=== PATIENT | female | born 1945 ===

== ENCOUNTER 2016-06-20 13:45 | Inpatient (IN) | payer OTHER ==
[2016-06-20 14:16] VITALS: BMI 36.1
[2016-06-20] MEDS ORDERED: Ipratropium 0.02% Inhal Soln (0.5 mg/2.5 ml) UD IH STA ×2 (14:37)
[2016-06-20] MEDS ORDERED: Levalbuterol 1.25 MG/3 ML Inhal Soln UD IH STA ×2 (14:37)
--- NOTE | 2016-06-20 14:53 | ED PDOC ---
Arrival/HPI - General Chief Complaint: Shortness Of Breath Time Seen by Provider: 06/20/16 14:05 Historian: Patient - History of Present Illness Narrative History of Present Illness (Text): 06/20/16 14:54 A 71 year old female, whose past medical history includes asthma, chronic obstructive pulmonary disease, diabetes and hypertension, presents to the emergency department complaining of a cough, shortness of breath and chest tightness for the past three days. Patient notes a temperature of 100.4 last night. Patient reports a mild nausea but denies vomiting, abdominal pain or any other complaints at this time. Time/Duration: Other (3 days) Symptom Onset: Sudden Symptom Course: Unchanged Activities at Onset: Rest Modifying Factors (Text): none Context: Home Associated Symptoms (Text): nausea Past Medical History - Provider Review Nursing Documentation Reviewed: Yes - Infectious Disease Hx of Infectious Diseases: None - Tetanus Immunization Tetanus Immunization: Unknown - Reproductive Menopause: Yes - Cardiac Hx Hypertension: Yes - Pulmonary Hx Respiratory Disorders: Yes Hx Asthma: Yes - Neurological Hx Paralysis: No - HEENT Hx Cataracts: Yes (RIGHT EYE) - Renal Hx Kidney Stones: Yes - Endocrine/Metabolic Hx Diabetes Mellitus Type 2: Yes - Hematological/Oncological Hx Blood Transfusions: No - Integumentary Hx Dermatological Disorder: Yes Other/Comment: ROSACEA - Musculoskeletal/Rheumatological Hx Musculoskeletal Disorders: Yes - Gastrointestinal Hx Gastrointestinal Disorders: Yes Hx Gastroesophageal Reflux: Yes - Genitourinary/Gynecological Hx Genitourinary Disorders: No - Psychiatric Hx Substance Use: No - Surgical History Hx Hysterectomy: Yes - Anesthesia Hx Anesthesia Reactions: No Hx Malignant Hyperthermia: No - Suicidal Assessment Feels Threatened In Home Enviroment: No Family/Social History - Physician Review Nursing Documentation Reviewed: Yes Family/Social History: No Known Family HX Smoking Status: Never Smoked Hx Alcohol Use: No Hx Substance Use: No Hx Substance Use Treatment: No Allergies/Home Meds Allergies/Adverse Reactions: Allergies No Known Allergies Allergy (Verified 09/22/15 00:01) Home Medications: Home Meds Medication Instructions Recorded Confirmed Fluticasone Nasal [Flonase] 1 spray THEO DAILY 03/27/15 10/09/15 Mometasone/Formoterol [Dulera 200 2 puff INH BID 03/27/15 10/09/15 Mcg/5 Mcg Inhaler] Montelukast [Singulair] 10 mg PO DAILY 03/27/15 10/09/15 Naproxen 375 mg PO DAILY 03/27/15 10/09/15 Pantoprazole [Protonix EC Tab] 40 mg PO DAILY 03/27/15 10/09/15 Albuterol HFA [Ventolin HFA 90 2 puff IH [id number] 09/25/15 10/09/15 mcg/actuation (8 g)] Fenofibrate Nanocrystallized 145 mg PO DAILY 09/30/15 10/09/15 [Fenofibrate] Metformin HCl [Glucophage] 500 mg PO BID 10/09/15 10/09/15 Review of Systems - Physician Review All systems were reviewed & negative as marked: Yes - Review of Systems Constitutional: Fevers Respiratory: SOB, Cough Cardiovascular: LARSEN, Other (chest tightness) Gastrointestinal: Nausea. absent: Abdominal Pain, Vomiting Genitourinary Female: absent: Dysuria Physical Exam Vital Signs Reviewed: Yes Vital Signs Temp Pulse Resp BP Pulse Ox 06/20/16 14:54 99.8 F H 06/20/16 13:46 99.2 F 110 H 20 151/90 H 93 L Temperature: Afebrile Blood Pressure: Hypertensive Pulse: Tachycardic Respiratory Rate: Normal Appearance: Positive for: Well-Appearing, Non-Toxic, Comfortable Pain Distress: None Mental Status: Positive for: Alert and Oriented X 3 - Systems Exam Head: Present: Atraumatic, Normocephalic Pupils: Present: PERRL Conjunctiva: Present: Normal Mouth: Present: Moist Mucous Membranes Pharnyx: Present: Normal. No: ERYTHEMA, EXUDATE Neck: Present: Normal Range of Motion Respiratory/Chest: Present: Wheezes (diffuse bilateral), Other (significantly diminished breath sounds) Cardiovascular: Present: Tachycardic Abdomen: Present: Normal Bowel Sounds. No: Tenderness, Distention, Peritoneal Signs Back: Present: Normal Inspection Upper Extremity: Present: Normal Inspection. No: Cyanosis, Edema Lower Extremity: Present: Normal Inspection. No: Edema Neurological: Present: GCS=15, CN II-XII Intact, Speech Normal Skin: Present: Warm, Dry, Normal Color. No: Rashes Psychiatric: Present: Alert, Oriented x 3, Normal Insight, Normal Concentration Medical Decision Making ED Course and Treatment: 06/20/16 14:50 Impression: A 71 year old female with cough, shortness of breath and chest tightness. Differential Diagnosis included but are not limited to: COPD exacerbation vs. pneumonia vs ACS Plan: -- EKG -- chest xray -- labs -- Urinalysis -- Reassess and disposition Prior Visits: Notes and results from previous visits were reviewed. Patient last reported to emergency department on 09/22/15 for evaluation of dizziness, chest pain and nausea. Patient admitted to Telemetry observation for chest pain under 's service. Progress Notes: chest xray: Creator : Charlie Bills MD 06/20/2016 15:33 IMPRESSION: No focal airspace opacity. 06/20/16 16:15 Patient with noted history; labs are unremarkable as is CXR, but patient with significantly diminished air entry and sob - will need additional treatment in the hospital. Discussed with Dr. Lacy, who said to place here on the hospitalist service. Case discussed with Dr. Simpson. - Lab Interpretations Lab Results: 06/20/16 14:40 06/20/16 14:40 Lab Results 06/20/16 14:40: Sodium 143, Chloride 103, Potassium 3.9, Carbon Dioxide 30, Anion Gap 14, BUN 12, Creatinine 0.8, Est GFR ( Amer) > 60, Est GFR (Non- Af Amer) > 60, Random Glucose 138 H, Calcium 9.3, Phosphorus 3.5, Magnesium 1.5 L, Total Bilirubin 0.7, AST 29, ALT 38, Alkaline Phosphatase 60, Lactate Dehydrogenase 470, Total Creatine Kinase 151, Troponin I < 0.01, NT-Pro-B Natriuret Pep 29.3, Total Protein 7.5, Albumin 4.0, Globulin 3.6, Albumin/ Globulin Ratio 1.1, Lipase 107, Plasma Cortisol PM Pending 06/20/16 14:40: pO2 48, VBG pH 7.33, VBG pCO2 60.0, VBG HCO3 31.6 H, VBG Total CO2 33.4 H, VBG O2 Sat (Calc) 87.1 H, VBG Base Excess 4.0 H, VBG Potassium 3.9, Sodium 141.0, Chloride 110.0 H, Glucose 141 H, Lactate 1.6, FiO2 21.0, Venous Blood Potassium 3.9 06/20/16 14:40: PT 10.7, INR 0.99, APTT 24.7 06/20/16 14:40: WBC 5.0 D, RBC 4.19, Hgb 12.7, Hct 37.3, MCV 89.0, MCH 30.3, MCHC 34.0, RDW 13.4, Plt Count 203, MPV 11.2 H, Gran % 50.4, Lymph % (Auto) 38.6 H, [place] % (Auto) 7.8 H, Eos % (Auto) 2.6, Baso % (Auto) 0.6, Gran # 2.52, Lymph # 1.9, [place] # 0.4, Eos # 0.1, Baso # 0.03, ESR 12 I have reviewed the lab results: Yes - RAD Interpretation Radiology Orders: 06/20/16 14:35 CHEST PORTABLE [RAD] Stat - EKG Interpretation EKG Interpretation (Text): 06/20/16 16:17 sinus tachycardia @ 112; no ST/T changes; normal intervals; normal axis. Interpreted by ED Physician: Yes Type: 12 lead EKG - Medication Orders Current Medication Orders: Magnesium Sulfate 2 gm/ Sodium (Chloride) 104 mls @ 102 mls/hr IV ONCE ONE Stop: 06/20/16 16:32 Last Admin: 06/20/16 15:44 Dose: 102 mls/hr Discontinued Medications Ipratropium [place] (Atrovent) 0.5 mg IH STAT STA Stop: 06/20/16 14:38 Last Admin: 06/20/16 15:39 Dose: 0.5 mg Ipratropium [place] (Atrovent) 0.5 mg IH STAT STA Stop: 06/20/16 14:38 Last Admin: 06/20/16 15:00 Dose: 0.5 mg Levalbuterol HCl (Xopenex) 1.25 mg IH STAT STA Stop: 06/20/16 14:38 Last Admin: 06/20/16 15:15 Dose: 1.25 mg Levalbuterol HCl (Xopenex) 1.25 mg IH STAT STA Stop: 06/20/16 14:38 Last Admin: 06/20/16 15:00 Dose: 1.25 mg Methylprednisolone (Solu-Medrol) 125 mg IVP STAT STA Stop: 06/20/16 14:38 Last Admin: 06/20/16 15:00 Dose: 125 mg - Scribe Statement The provider has reviewed the documentation as recorded by the Heriberto Redman Provider Scribe Attestation: All medical record entries made by the Pabloibhilario were at my direction and personally dictated by me. I have reviewed the chart and agree that the record accurately reflects my personal performance of the history, physical exam, medical decision making, and the department course for this patient. I have also personally directed, reviewed, and agree with the discharge instructions and disposition. Disposition/Present on Arrival - Present on Arrival Any Indicators Present on Arrival: No History of DVT/PE: No History of Uncontrolled Diabetes: No Urinary Catheter: No History of Decub. Ulcer: No History Surgical Site Infection Following: None - Disposition Have Diagnosis and Disposition been Completed?: Yes Diagnosis: COPD exacerbation Disposition: HOSPITALIZED Disposition Time: 16:10 Patient Plan: Observation Condition: FAIR
[2016-06-20 15:01] LABS: ADD MANUAL DIFF? NO
[2016-06-20 15:04] LABS: BASO # 0.03 K/mm3 (0.0-2.0); BASO % 0.6 % (0.0-3.0); EOS # 0.1 (0.0-0.7); EOS % 2.6 % (1.5-5.0); GRAN # 2.52 (1.4-6.5); GRAN % 50.4 % (50.0-68.0); HEMATOCRIT 37.3 % (36.0-48.0); LYMPH # 1.9 (1.2-3.4); LYMPH % 38.6 % (22.0-35.0); MEAN CORPUSCULAR HEMOGLOBIN 30.3 pg (25.0-35.0); MEAN PLATELET VOLUME 11.2 fl (7.0-11.0); MONO # 0.4 (0.1-0.6); MONO % 7.8 % (1.0-6.0); PLATELET COUNT 203 10^3/uL (120.0-450.0); RED CELL DISTRIBUTION WIDTH 13.4 % (11.5-14.5)
[2016-06-20 15:05] LABS: VENOUS BLOOD PH 7.33 (7.32-7.43)
[2016-06-20 15:15] LABS: ALB/GLOB RATIO 1.1 (1.1-1.8); ALKALINE PHOSPHATASE 60 U/L (38-133); ALT/SGPT 38 U/L (7-56); AST/SGOT 29 U/L (15-39); BILIRUBIN,TOTAL 0.7 mg/dL (0.2-1.3); BLOOD UREA NITROGEN 12 mg/dL (7-21); CALCIUM 9.3 mg/dL (8.4-10.5); CARBON DIOXIDE 30 mmol/L (21-33); CHLORIDE 103 mmol/L (98-107); GFR AFRICAN-AMERICAN > 60; GLUCOSE,RANDOM 138 mg/dL (70-110); INR 0.99 (0.93-1.08); LIPASE 107 U/L (23-300); MAGNESIUM 1.5 mg/dL (1.7-2.2); PARTIAL THROMBOPLASTIN TIME 24.7 Seconds (23.7-30.8); PHOSPHOROUS 3.5 mg/dL (2.5-4.5); POTASSIUM 3.9 mmol/L (3.6-5.0); SODIUM 143 mmol/L (132-148); TOTAL PROTEIN 7.5 g/dL (5.8-8.3)
[2016-06-20 15:29] LABS: TROPONIN I < 0.01 ng/mL
--- NOTE | 2016-06-20 15:29 | RAD ---
HISTORY: Sepsis Patient COMPARISON: 07/09/2015 FINDINGS: LUNGS: No focal airspace opacity. PLEURA: No significant pleural effusion identified, no pneumothorax apparent. CARDIOVASCULAR: Normal. OSSEOUS STRUCTURES: The osseous structures demonstrate degenerative changes. VISUALIZED UPPER ABDOMEN: Upper abdomen is suboptimally evaluated. OTHER FINDINGS: None. IMPRESSION: No focal airspace opacity.
[2016-06-20] MEDS ORDERED: Magnesium Sulfate 2 GM in Sodium Chloride 0.9% 100 ML IV ONE (15:31)
[2016-06-20 16:11] LABS: ERYTHROCYTE SEDIMENTATION RATE 12 mm/hr (0.0-20.0)
[2016-06-20] MEDS ORDERED: Levalbuterol 1.25 MG/3 ML Inhal Soln UD IH PRN (17:16)
[2016-06-20 17:20] LABS: URINE BILIRUBIN NEGATIVE (NEGATIVE); URINE BLOOD TRACE-INTACT (NEGATIVE); URINE GLUCOSE (UA) NEGATIVE (NEGATIVE); URINE KETONE NEGATIVE (NEGATIVE); URINE LEUKOCYTE ESTERASE NEGATIVE Leu/uL (NEGATIVE); URINE PROTEIN NEGATIVE mg/dL (<30 mg/dL); URINE UROBILINOGEN 0.2 E.U./dL (<1 E.U./dL)
[2016-06-20 17:29] LABS: URINE APPEARANCE CLEAR (CLEAR); URINE COLOR YELLOW (YELLOW)
--- NOTE | 2016-06-20 17:29 | CP.PCM.HP ---
<Kathy Avila - Last Filed: 06/20/16 17:57> History of Present Illness - History of Present Illness History of Present Illness: 71 yo F w/PMHx of asthma, COPD, DM, HTN, presents with 3 day hx of cough with white small volume sputum, SOB, chest tightness, and home measured tempureture of 100.4. Said SOB is not related with exertion. reports nasal congetsion and watery eyes, and sick son-in-law in house. Chest tightness is with cough, and otherwise, pt denies vomiting, abdominal pain, urinary symptoms, and BM changes. PMHx: COPD, asthma, DM, HTN Psxhx: hysterectomy allergies: NKDA Medications: singulair 10, omeprazole 40, fenofibrate 135 qd, metformin 500 mg PO BID, ramipril 5 mg PO QD social: former smoker of 12 years duration of 2 cig /day. denies etoh, and ilicit drugs family: DM, no CA Present on Admission - Present on Admission Any Indicators Present on Admission: No Review of Systems - Review of Systems All systems: reviewed and no additional remarkable complaints except - Constitutional Constitutional: Chills, Fever - Cardiovascular Cardiovascular: absent: Chest Pain with Activity, Dyspnea - Respiratory Respiratory: Cough, Dyspnea - Gastrointestinal Gastrointestinal: absent: Abdominal Pain, Diarrhea Past Patient History - Infectious Disease Hx of Infectious Diseases: None - Tetanus Immunizations Tetanus Immunization: Unknown - Past Medical History & Family History Past Medical History?: Yes - Past Social History Smoking Status: Never Smoked - CARDIAC Hx Hypertension: Yes - PULMONARY Hx Respiratory Disorders: Yes Hx Asthma: Yes - NEUROLOGICAL Hx Paralysis: No - HEENT Hx Cataracts: Yes (RIGHT EYE) - RENAL Hx Kidney Stones: Yes - ENDOCRINE/METABOLIC Hx Diabetes Mellitus Type 2: Yes - HEMATOLOGICAL/ONCOLOGICAL Hx Blood Transfusions: No - INTEGUMENTARY Hx Dermatological Problems: Yes Other/Comment: ROSACEA - MUSCULOSKELETAL/RHEUMATOLOGICAL Hx Musculoskeletal Disorders: Yes - GASTROINTESTINAL Hx Gastrointestinal Disorders: Yes Hx Gastroesophageal Reflux: Yes - GENITOURINARY/GYNECOLOGICAL Hx Genitourinary Disorders: No - PSYCHIATRIC Hx Substance Use: No - SURGICAL HISTORY Hx Hysterectomy: Yes - ANESTHESIA Hx Anesthesia Reactions: No Hx Malignant Hyperthermia: No Meds Allergies/Adverse Reactions: Allergies Allergy/AdvReac Type Severity Reaction Status Date / Time No Known Allergies Allergy Verified 09/22/15 00:01 Physical Exam - Head Exam Head Exam: ATRAUMATIC, NORMOCEPHALIC - Eye Exam Eye Exam: EOMI, Normal appearance Pupil Exam: NORMAL ACCOMODATION, PERRL - ENT Exam ENT Exam: Mucous Membranes Moist, Normal Exam - Respiratory Exam Respiratory Exam: Wheezes, NORMAL BREATHING PATTERN - Cardiovascular Exam Cardiovascular Exam: Tachycardia, +S1, +S2 - GI/Abdominal Exam GI & Abdominal Exam: Soft. absent: Tenderness - Exam External exam: absent: Ecchymosis, Erythema - Extremities Exam Extremities exam: Positive for: normal capillary refill, pedal pulses present - Back Exam Back exam: absent: CVA tenderness (L), CVA tenderness (R) - Neurological Exam Neurological exam: Alert, Oriented x3 - Skin Skin Exam: Intact, Normal Color Results - Vital Signs Recent Vital Signs: Last Vital Signs Temp 98.7 F 06/20/16 16:53 Pulse 101 H 06/20/16 16:53 Resp 20 06/20/16 16:53 BP 150/90 06/20/16 16:53 Pulse Ox 94 L 06/20/16 16:53 - Labs Result Diagrams: 06/20/16 14:40 06/20/16 14:40 Labs: Laboratory Results - last 24 hr 06/20/16 06/20/16 06/20/16 14:40 14:40 14:40 WBC 5.0 D RBC 4.19 Hgb 12.7 Hct 37.3 MCV 89.0 MCH 30.3 MCHC 34.0 RDW 13.4 Plt Count 203 MPV 11.2 H Gran % 50.4 Lymph % (Auto) 38.6 H [place] % (Auto) 7.8 H Eos % (Auto) 2.6 Baso % (Auto) 0.6 Gran # 2.52 Lymph # 1.9 [place] # 0.4 Eos # 0.1 Baso # 0.03 ESR 12 PT 10.7 INR 0.99 APTT 24.7 pO2 48 VBG pH 7.33 VBG pCO2 60.0 VBG HCO3 31.6 H VBG Total CO2 33.4 H VBG O2 Sat (Calc) 87.1 H VBG Base Excess 4.0 H VBG Potassium 3.9 Sodium 141.0 Chloride 110.0 H Glucose 141 H Lactate 1.6 FiO2 21.0 Potassium Carbon Dioxide Anion Gap BUN Creatinine Est GFR ( Amer) Est GFR (Non-Af Amer) Random Glucose Calcium Phosphorus Magnesium Total Bilirubin AST ALT Alkaline Phosphatase Lactate Dehydrogenase Total Creatine Kinase Troponin I NT-Pro-B Natriuret Pep Total Protein Albumin Globulin Albumin/Globulin Ratio Lipase Venous Blood Potassium 3.9 06/20/16 14:40 WBC RBC Hgb Hct MCV MCH MCHC RDW Plt Count MPV Gran % Lymph % (Auto) [place] % (Auto) Eos % (Auto) Baso % (Auto) Gran # Lymph # [place] # Eos # Baso # ESR PT INR APTT pO2 VBG pH VBG pCO2 VBG HCO3 VBG Total CO2 VBG O2 Sat (Calc) VBG Base Excess VBG Potassium Sodium 143 Chloride 103 Glucose Lactate FiO2 Potassium 3.9 Carbon Dioxide 30 Anion Gap 14 BUN 12 Creatinine 0.8 Est GFR ( Amer) > 60 Est GFR (Non-Af Amer) > 60 Random Glucose 138 H Calcium 9.3 Phosphorus 3.5 Magnesium 1.5 L Total Bilirubin 0.7 AST 29 ALT 38 Alkaline Phosphatase 60 Lactate Dehydrogenase 470 Total Creatine Kinase 151 Troponin I < 0.01 NT-Pro-B Natriuret Pep 29.3 Total Protein 7.5 Albumin 4.0 Globulin 3.6 Albumin/Globulin Ratio 1.1 Lipase 107 Venous Blood Potassium Assessment & Plan - Assessment and Plan (Free Text) Plan: 71 yo F w/PMHx of COPD, asthma, DM, HTN, presents with 3 day hx of cough SOB, chest tightness, and F, presents. EKG nsr tachycardia and CXR wnl, and intial troponin is neg: COPD exacerbation: xopenex singular solumedrol 40mg IV q12 tylenol procalcitonin level HTN: Ramipril 5mg qd monitor PPX measures: protonix heparin <Marita Juarez B - Last Filed: 06/20/16 18:22> Results - Vital Signs Recent Vital Signs: Last Vital Signs Temp 98.7 F 06/20/16 16:53 Pulse 101 H 06/20/16 16:53 Resp 20 06/20/16 16:53 BP 150/90 06/20/16 16:53 Pulse Ox 94 L 06/20/16 16:53 - Labs Result Diagrams: 06/20/16 14:40 06/20/16 14:40 Labs: Laboratory Results - last 24 hr 06/20/16 17:00 Urine Color Yellow Urine Appearance Clear Urine pH 6.0 Ur Specific Vendor 1.025 Urine Protein Negative Urine Glucose (UA) Negative Urine Ketones Negative Urine Blood Trace-intact H Urine Nitrate Negative Urine Bilirubin Negative Urine Urobilinogen 0.2 Ur Leukocyte Esterase Negative Urine RBC 5 - 10 Urine WBC 1 - 3 Ur Epithelial Cells 4 - 5 Attending/Attestation - Attestation I have personally seen and examined this patient.: Yes I have fully participated in the care of the patient.: Yes I have reviewed all pertinent clinical information: Yes Notes (Text): I have seen and examined patient at bedside. This is 71 year old female with history of asthma, COPD, cataract, rosacea, obesity, insomnia, hyperlipidemia, HTN, DM-2, osteoporosis, GERD, Post EGD hematemesis, hysterectomy, non obstructive CAD (EF~65%) who got admitted for evaluation of cough productive of whitish sputum, dyspnea on exertion, pleuritic chest pain and subjective fever. Upon exam, she has wheezing at both lung basis and found to have COPD exacerbation. Will start solumedrol, xopenex, singulair, tessalon perles, rocephin and zithro. Continue home meds. Upon discharge patient will follow up with Dr Lacy and Dr Spaulding. Dr Marita Juarez
[2016-06-20] MEDS ORDERED: cefTRIAXone 1 gm 1 GM/100 ML BAG IVPB STA (19:14)
[2016-06-20] MEDS: Levalbuterol 1.25 MG/3 ML Inhal Soln UD IH SCH (20:52)
[2016-06-21] MEDS: Levalbuterol 1.25 MG/3 ML Inhal Soln UD IH SCH ×6 (02:05→21:40)
[2016-06-21 07:45] LABS: ADD MANUAL DIFF? NO
[2016-06-21 08:00] LABS: ALB/GLOB RATIO 1.2 (1.1-1.8); ALKALINE PHOSPHATASE 66 U/L (38-133); ALT/SGPT 36 U/L (7-56); AST/SGOT 25 U/L (15-39); BILIRUBIN,TOTAL 0.7 mg/dL (0.2-1.3); BLOOD UREA NITROGEN 16 mg/dL (7-21); CALCIUM 9.5 mg/dL (8.4-10.5); CARBON DIOXIDE 29 mmol/L (21-33); CHLORIDE 101 mmol/L (98-107); GFR AFRICAN-AMERICAN > 60; GLUCOSE,RANDOM 170 mg/dL (70-110); MAGNESIUM 1.7 mg/dL (1.7-2.2); PHOSPHOROUS 3.8 mg/dL (2.5-4.5); POTASSIUM 3.9 mmol/L (3.6-5.0); SODIUM 140 mmol/L (132-148); TOTAL PROTEIN 7.8 g/dL (5.8-8.3)
[2016-06-21 08:09] LABS: BASO # 0.01 K/mm3 (0.0-2.0); BASO % 0.1 % (0.0-3.0); GRAN % 79.4 % (50.0-68.0); HEMATOCRIT 38.4 % (36.0-48.0); LYMPH # 1.4 (1.2-3.4); LYMPH % 17.6 % (22.0-35.0); MEAN CELL VOLUME 88.5 fL (80.0-105.0); MEAN CORPUSCULAR HEMOGLOBIN 30.6 pg (25.0-35.0); MEAN CORPUSCULAR HGB CONC 34.6 g/dl (31.0-37.0); MEAN PLATELET VOLUME 11.2 fl (7.0-11.0); MONO # 0.2 (0.1-0.6); MONO % 2.9 % (1.0-6.0); PLATELET COUNT 216 10^3/uL (120.0-450.0); RED CELL DISTRIBUTION WIDTH 13.2 % (11.5-14.5); WHITE BLOOD COUNT 7.8 10^3/ul (4.5-11.0)
[2016-06-21] MEDS: cefTRIAXone 1 gm 1 GM/100 ML BAG IVPB SCH (10:55)
[2016-06-21] MEDS: MethylPREDNISolone 40 mg Vial IVP SCH ×2 (10:56→21:17)
[2016-06-21] MEDS: Fluticasone Nasal 50 mcg/Spray NAS SCH (10:57)
[2016-06-21] MEDS: Pantoprazole 40 mg EC Tab PO SCH (10:58)
--- NOTE | 2016-06-21 11:45 | CARD ---
APPROVED REPORT EKG Measurement Heart [id number] <Conclusion> Sinus tachycardia Otherwise normal ECG No change except increased rate
--- NOTE | 2016-06-21 12:58 | CP.PCM.PN ---
<Tati Baker - Last Filed: 06/21/16 16:05> Subjective - Date & Time of Evaluation Date of Evaluation: 06/21/16 Time of Evaluation: 11:00 - Subjective Subjective: PGY-1 Medicine progress note Patient seen and examined at bedside. No acute distress. Nurse reports no acute events overnight. Patient states that her sob has improved from yesterday, she continues to report cough. She states that she has chest pain and abdominal pain with cough. She reports headache, nurse gave patient tylenol. Pateint denies n/v, fevers, chills, she is tolerating diet. Objective - Vital Signs/Intake and Output Vital Signs (last 24 hours): Temp Pulse Resp BP Pulse Ox 97.9 F 102 H 19 149/80 94 L 06/21/16 06:00 06/21/16 06:00 06/21/16 06:00 06/21/16 06:00 06/21/16 06:00 - Medications Medications: Current Medications Acetaminophen (Tylenol 325mg Tab) 650 mg PO Q6H PRN PRN Reason: Fever >100.4 F Last Admin: 06/21/16 01:42 Dose: 650 mg Aspirin (Ecotrin) 81 mg PO DAILY [facility] Last Admin: 06/21/16 10:57 Dose: 81 mg Azithromycin (Zithromax) 250 mg PO DAILY [facility] PRN Reason: Protocol Last Admin: 06/21/16 10:57 Dose: 250 mg Benzonatate (Tessalon Perles) 100 mg PO TID [facility] Last Admin: 06/21/16 10:57 Dose: 100 mg Fenofibrate (Tricor) 145 mg PO DAILY [facility] Last Admin: 06/21/16 10:57 Dose: 145 mg Fluticasone Propionate (Flonase) 1 actuation THEO DAILY [facility] Last Admin: 06/21/16 10:57 Dose: 1 spray Guaifenesin (Robitussin) 100 mg PO Q4H PRN PRN Reason: Cough Heparin Sodium (Porcine) (Heparin) 5,000 units SC Q12 WOJCIECH PRN Reason: Protocol Last Admin: 06/21/16 10:57 Dose: 5,000 units Ceftriaxone Sodium (Rocephin 1 Gram Ivpb) 1 gm in 100 mls @ 100 mls/hr IVPB DAILY WOJCIECH PRN Reason: Protocol Last Admin: 06/21/16 10:55 Dose: 100 mls/hr Ipratropium Duc[place] (Atrovent) 0.5 mg IH [id number] [facility] Levalbuterol HCl (Xopenex) 1.25 mg IH Q4 [facility] Last Admin: 06/21/16 11:01 Dose: 1.25 mg Levalbuterol HCl (Xopenex) 1.25 mg IH Q4 PRN PRN Reason: Shortness of Breath Metformin HCl (Glucophage) 500 mg PO BID [facility] Last Admin: 06/21/16 10:57 Dose: 500 mg Methylprednisolone (Solu-Medrol) 40 mg IVP Q12 [facility] Last Admin: 06/21/16 10:56 Dose: 40 mg Montelukast Sodium (Singulair) 10 mg PO DAILY [facility] Last Admin: 06/21/16 10:57 Dose: 10 mg Pantoprazole Sodium (Protonix Ec Tab) 40 mg PO DAILY [facility] Last Admin: 06/21/16 10:58 Dose: 40 mg Ramipril (Altace) 5 mg PO DAILY [facility] Last Admin: 06/20/16 18:35 Dose: 5 mg - Labs Labs: PT 10.7 Seconds (9.9-11.8) 06/20/16 14:40 INR 0.99 (0.93-1.08) 06/20/16 14:40 APTT 24.7 Seconds (23.7-30.8) 06/20/16 14:40 - Constitutional Appears: No Acute Distress - Head Exam Head Exam: ATRAUMATIC, NORMOCEPHALIC - Eye Exam Eye Exam: Normal appearance - ENT Exam ENT Exam: Mucous Membranes Moist - Respiratory Exam Respiratory Exam: Decreased Breath Sounds. absent: Rales, Rhonchi, Wheezes, Respiratory Distress - Cardiovascular Exam Cardiovascular Exam: REGULAR RHYTHM. absent: Tachycardia, Murmur - GI/Abdominal Exam GI & Abdominal Exam: Normal Bowel Sounds. absent: Distended, Firm, Soft, Tenderness - Extremities Exam Extremities Exam: Normal Inspection. absent: Pedal Edema - Neurological Exam Neurological Exam: Alert, Awake, Oriented x3 - Skin Skin Exam: Dry, Intact, Normal Color, Warm Assessment and Plan - Assessment and Plan (Free Text) Assessment: 71 yo female with PMH of COPD, asthma, DM, HTN, presents with COPD exacerbation with 3 day hx of cough SOB, chest tightness, and fever at home. EKG showed NSR with tachycardia and CXR wnl, and initial troponin is neg. Plan: 1. COPD exacerbation: - cont xopenex, singular - cont solumedrol 40mg IV q12 - cont azithromycin and Rocephin - tylenol prn - start Atrovent - cont tessalon perles and start robitussin - procalcitonin is negative - PT eval 2. HTN: - cont home Ramipril 5mg qd - cont to monitor PPX measures: protonix heparin <Rangasamy,Ajantha - Last Filed: 06/22/16 16:50> Objective - Vital Signs/Intake and Output Vital Signs (last 24 hours): Temp Pulse Resp BP Pulse Ox 98.7 F 115 H 18 162/80 H 95 06/22/16 06:00 06/22/16 14:00 06/22/16 06:00 06/22/16 09:31 06/22/16 07:55 Intake and Output: 06/22/16 06/22/16 06:59 18:59 Intake Total 720 840 Balance 720 840 - Medications Medications: Current Medications Acetaminophen (Tylenol 325mg Tab) 650 mg PO Q6H PRN PRN Reason: Fever >100.4 F Last Admin: 06/21/16 01:42 Dose: 650 mg Acetaminophen/Butalbital/Caffeine (Fioricet) 1 tab PO Q4H PRN PRN Reason: Headache Last Admin: 06/21/16 21:19 Dose: 1 tab Aspirin (Ecotrin) 81 mg PO DAILY [facility] Last Admin: 06/22/16 09:10 Dose: 81 mg Azithromycin (Zithromax) 250 mg PO DAILY [facility] PRN Reason: Protocol Last Admin: 06/22/16 09:10 Dose: 250 mg Benzonatate (Tessalon Perles) 100 mg PO TID [facility] Last Admin: 06/22/16 14:33 Dose: 100 mg Fenofibrate (Tricor) 145 mg PO DAILY [facility] Last Admin: 06/22/16 09:10 Dose: 145 mg Fluticasone Propionate (Flonase) 1 actuation THOE DAILY [facility] Last Admin: 06/22/16 12:12 Dose: Not Given Guaifenesin (Robitussin) 100 mg PO Q4H PRN PRN Reason: Cough Last Admin: 06/22/16 15:01 Dose: 100 mg Heparin Sodium (Porcine) (Heparin) 5,000 units SC Q12 WOJCIECH PRN Reason: Protocol Last Admin: 06/22/16 09:11 Dose: 5,000 units Ceftriaxone Sodium (Rocephin 1 Gram Ivpb) 1 gm in 100 mls @ 100 mls/hr IVPB DAILY WOJCIECH PRN Reason: Protocol Last Admin: 06/22/16 09:10 Dose: 100 mls/hr Insulin Human Regular (Humulin R Low) 0 units SC ACHS WOJCIECH PRN Reason: Protocol Last Admin: 06/22/16 12:12 Dose: 2 units Ipratropium [place] (Atrovent) 0.5 mg IH [id number] [facility] Last Admin: 06/22/16 13:45 Dose: 0.5 mg Levalbuterol HCl (Xopenex) 1.25 mg IH Q4 [facility] Last Admin: 06/22/16 15:50 Dose: 1.25 mg Levalbuterol HCl (Xopenex) 1.25 mg IH Q4 PRN PRN Reason: Shortness of Breath Metformin HCl (Glucophage) 500 mg PO BID [facility] Last Admin: 06/22/16 09:10 Dose: 500 mg Methylprednisolone (Solu-Medrol) 40 mg IVP Q12 WOJCIECH Last Admin: 06/22/16 09:10 Dose: 40 mg Montelukast Sodium (Singulair) 10 mg PO DAILY [facility] Last Admin: 06/22/16 09:10 Dose: 10 mg Pantoprazole Sodium (Protonix Ec Tab) 40 mg PO DAILY [facility] Last Admin: 06/22/16 09:31 Dose: 40 mg Ramipril (Altace) 5 mg PO DAILY [facility] Last Admin: 06/22/16 09:31 Dose: 5 mg - Labs Labs: 06/22/16 08:00 06/22/16 08:00 PT 10.7 Seconds (9.9-11.8) 06/20/16 14:40 INR 0.99 (0.93-1.08) 06/20/16 14:40 APTT 24.7 Seconds (23.7-30.8) 06/20/16 14:40 Attending/Attestation - Attestation I have personally seen and examined this patient.: Yes I have fully participated in the care of the patient.: Yes I have reviewed all pertinent clinical information, including history, physical exam and plan: Yes Notes (Text): 06/22/16 16:46 Attending note . Patient seen and examined with resident. Patient is a 71 year old female with history of asthma, COPD, obesity, insomnia , hyperlipidemia, HTN, DM-2, osteoporosis, GERD, hysterectomy, non obstructive CAD (EF~65%) who got admitted for evaluation of cough productive of whitish sputum, dyspnea on exertion, pleuritic chest pain and subjective fever. Acute COPD exacerbation; Continues to have severe cough and exertional dyspnea. Continue oxygen, xopenex , IV Solu-Medrol. Started on Robitussin. Continue Rocephin and Zithromax. Upon discharge patient will follow up with and pulmonary .
[2016-06-21] MEDS: Ipratropium 0.02% Inhal Soln (0.5 mg/2.5 ml) UD IH SCH ×2 (13:11→21:41)
[2016-06-21] MEDS: Apap-Butalbital-Caffeine 325-50-40mg Tab PO PRN (21:19)
[2016-06-21] MEDS: Insulin Reg-LOW-Coverage SC SCH (21:41)
[2016-06-22] MEDS: guaiFENesin 100 mg/5 ml Syrup UD PO PRN ×2 (01:21→15:01)
[2016-06-22] MEDS: Ipratropium 0.02% Inhal Soln (0.5 mg/2.5 ml) UD IH SCH ×4 (02:07→19:23)
[2016-06-22] MEDS: Levalbuterol 1.25 MG/3 ML Inhal Soln UD IH SCH ×6 (02:07→19:24)
[2016-06-22 08:19] LABS: ADD MANUAL DIFF? NO
[2016-06-22 08:23] LABS: BASO # 0.01 K/mm3 (0.0-2.0); BASO % 0.1 % (0.0-3.0); GRAN # 11.93 (1.4-6.5); GRAN % 81.4 % (50.0-68.0); HEMATOCRIT 38.2 % (36.0-48.0); LYMPH # 2.2 (1.2-3.4); MEAN CELL VOLUME 89.5 fL (80.0-105.0); MEAN CORPUSCULAR HGB CONC 33.5 g/dl (31.0-37.0); MEAN PLATELET VOLUME 10.9 fl (7.0-11.0); MONO # 0.5 (0.1-0.6); MONO % 3.5 % (1.0-6.0); PLATELET COUNT 223 10^3/uL (120.0-450.0); RED CELL DISTRIBUTION WIDTH 13.6 % (11.5-14.5); WHITE BLOOD COUNT 14.7 10^3/ul (4.5-11.0)
[2016-06-22 08:36] LABS: ALB/GLOB RATIO 1.2 (1.1-1.8); ALKALINE PHOSPHATASE 59 U/L (38-133); ALT/SGPT 29 U/L (7-56); AST/SGOT 20 U/L (15-39); BILIRUBIN,TOTAL 0.7 mg/dL (0.2-1.3); BLOOD UREA NITROGEN 20 mg/dL (7-21); CALCIUM 9.4 mg/dL (8.4-10.5); CARBON DIOXIDE 28 mmol/L (21-33); CHLORIDE 102 mmol/L (98-107); GFR AFRICAN-AMERICAN > 60; GLUCOSE,RANDOM 169 mg/dL (70-110); MAGNESIUM 1.7 mg/dL (1.7-2.2); POTASSIUM 4.3 mmol/L (3.6-5.0); SODIUM 140 mmol/L (132-148); TOTAL PROTEIN 7.7 g/dL (5.8-8.3)
[2016-06-22] MEDS: Insulin Reg-LOW-Coverage SC SCH ×4 (08:45→21:31)
[2016-06-22] MEDS: cefTRIAXone 1 gm 1 GM/100 ML BAG IVPB SCH (09:10)
[2016-06-22] MEDS: MethylPREDNISolone 40 mg Vial IVP SCH ×2 (09:10→21:04)
[2016-06-22] MEDS: Pantoprazole 40 mg EC Tab PO SCH (09:31)
[2016-06-22] MEDS: Fluticasone Nasal 50 mcg/Spray NAS SCH (12:12)
--- NOTE | 2016-06-22 13:42 | CP.PCM.PN ---
<Tati Baker - Last Filed: 06/22/16 14:45> Subjective - Date & Time of Evaluation Date of Evaluation: 06/22/16 Time of Evaluation: 11:00 - Subjective Subjective: PGY-1 Medicine progress note Patient seen and examined at bedside. No acute distress. Nurse reports overnoght patient continues to have cough with headache. Patient states that her sob has improved however her cough has not significantly improved. She states that the chest pain and abdominal pain occur with cough. Patient denies n /v, fevers, chills, she is tolerating diet. Objective - Vital Signs/Intake and Output Vital Signs (last 24 hours): Temp Pulse Resp BP Pulse Ox 98.7 F 100 H 18 162/80 H 95 06/22/16 06:00 06/22/16 06:00 06/22/16 06:00 06/22/16 09:31 06/22/16 07:55 Intake and Output: 06/22/16 06/22/16 06:59 18:59 Intake Total 720 Balance 720 - Medications Medications: Current Medications Acetaminophen (Tylenol 325mg Tab) 650 mg PO Q6H PRN PRN Reason: Fever >100.4 F Last Admin: 06/21/16 01:42 Dose: 650 mg Acetaminophen/Butalbital/Caffeine (Fioricet) 1 tab PO Q4H PRN PRN Reason: Headache Last Admin: 06/21/16 21:19 Dose: 1 tab Aspirin (Ecotrin) 81 mg PO DAILY [facility] Last Admin: 06/22/16 09:10 Dose: 81 mg Azithromycin (Zithromax) 250 mg PO DAILY [facility] PRN Reason: Protocol Last Admin: 06/22/16 09:10 Dose: 250 mg Benzonatate (Tessalon Perles) 100 mg PO TID [facility] Last Admin: 06/22/16 09:10 Dose: 100 mg Fenofibrate (Tricor) 145 mg PO DAILY [facility] Last Admin: 06/22/16 09:10 Dose: 145 mg Fluticasone Propionate (Flonase) 1 actuation THEO DAILY [facility] Last Admin: 06/22/16 12:12 Dose: Not Given Guaifenesin (Robitussin) 100 mg PO Q4H PRN PRN Reason: Cough Last Admin: 06/22/16 01:21 Dose: 100 mg Heparin Sodium (Porcine) (Heparin) 5,000 units SC Q12 [facility] PRN Reason: Protocol Last Admin: 06/22/16 09:11 Dose: 5,000 units Ceftriaxone Sodium (Rocephin 1 Gram Ivpb) 1 gm in 100 mls @ 100 mls/hr IVPB DAILY [facility] PRN Reason: Protocol Last Admin: 06/22/16 09:10 Dose: 100 mls/hr Insulin Human Regular (Humulin R Low) 0 units SC ACHS [facility] PRN Reason: Protocol Last Admin: 06/22/16 12:12 Dose: 2 units Ipratropium Drummond (Atrovent) 0.5 mg IH [id number] [facility] Last Admin: 06/22/16 07:55 Dose: 0.5 mg Levalbuterol HCl (Xopenex) 1.25 mg IH Q4 [facility] Last Admin: 06/22/16 11:11 Dose: 1.25 mg Levalbuterol HCl (Xopenex) 1.25 mg IH Q4 PRN PRN Reason: Shortness of Breath Metformin HCl (Glucophage) 500 mg PO BID [facility] Last Admin: 06/22/16 09:10 Dose: 500 mg Methylprednisolone (Solu-Medrol) 40 mg IVP Q12 [facility] Last Admin: 06/22/16 09:10 Dose: 40 mg Montelukast Sodium (Singulair) 10 mg PO DAILY [facility] Last Admin: 06/22/16 09:10 Dose: 10 mg Pantoprazole Sodium (Protonix Ec Tab) 40 mg PO DAILY [facility] Last Admin: 06/22/16 09:31 Dose: 40 mg Ramipril (Altace) 5 mg PO DAILY [facility] Last Admin: 06/22/16 09:31 Dose: 5 mg - Labs Labs: 06/22/16 08:00 06/22/16 08:00 PT 10.7 Seconds (9.9-11.8) 06/20/16 14:40 INR 0.99 (0.93-1.08) 06/20/16 14:40 APTT 24.7 Seconds (23.7-30.8) 06/20/16 14:40 - Constitutional Appears: No Acute Distress - Head Exam Head Exam: ATRAUMATIC, NORMOCEPHALIC - Eye Exam Eye Exam: Normal appearance - ENT Exam ENT Exam: Mucous Membranes Moist - Respiratory Exam Respiratory Exam: Decreased Breath Sounds, NORMAL BREATHING PATTERN. absent: Rales, Rhonchi, Wheezes, Respiratory Distress Additional comments: cough - Cardiovascular Exam Cardiovascular Exam: REGULAR RHYTHM. absent: Tachycardia, Murmur - GI/Abdominal Exam GI & Abdominal Exam: Soft, Normal Bowel Sounds. absent: Firm, Guarding, Tenderness - Extremities Exam Extremities Exam: Normal Inspection. absent: Pedal Edema - Neurological Exam Neurological Exam: Alert, Awake, Oriented x3 - Skin Skin Exam: Dry, Intact, Normal Color, Warm Assessment and Plan - Assessment and Plan (Free Text) Assessment: 71 yo female with PMH of COPD, asthma, DM, HTN, presents with COPD exacerbation with 3 day hx of cough SOB, chest tightness, and fever at home. EKG showed NSR with tachycardia and CXR wnl, and initial troponin is neg. Plan: 1. COPD exacerbation: - cont xopenex, singular, atrovant - cont solumedrol 40mg IV q12 - cont azithromycin and Rocephin - tylenol prn - cont tessalon perles and robitussin - procalcitonin is negative - patient has desaturation with activity 2. HTN: - cont home Ramipril 5mg qd - cont to monitor 3. DM - cont metformin - Cont ISSS- low - Increased glucose due to steroids 4. leukocytosis - most likely 2/2 steroids - blood cultures negative after 24 hours - urine cultures pending - procalcitonin is low - cont Rocephin and azithromycin PPX measures: gi- protonix dvt- heparin <Rangasamy,Ajantha - Last Filed: 06/22/16 16:58> Objective - Vital Signs/Intake and Output Vital Signs (last 24 hours): Temp Pulse Resp BP Pulse Ox 98.7 F 115 H 18 162/80 H 95 06/22/16 06:00 06/22/16 14:00 06/22/16 06:00 06/22/16 09:31 06/22/16 07:55 Intake and Output: 06/22/16 06/22/16 06:59 18:59 Intake Total 720 840 Balance 720 840 - Medications Medications: Current Medications Acetaminophen (Tylenol 325mg Tab) 650 mg PO Q6H PRN PRN Reason: Fever >100.4 F Last Admin: 06/21/16 01:42 Dose: 650 mg Acetaminophen/Butalbital/Caffeine (Fioricet) 1 tab PO Q4H PRN PRN Reason: Headache Last Admin: 06/21/16 21:19 Dose: 1 tab Aspirin (Ecotrin) 81 mg PO DAILY [facility] Last Admin: 06/22/16 09:10 Dose: 81 mg Azithromycin (Zithromax) 250 mg PO DAILY [facility] PRN Reason: Protocol Last Admin: 06/22/16 09:10 Dose: 250 mg Benzonatate (Tessalon Perles) 100 mg PO TID [facility] Last Admin: 06/22/16 14:33 Dose: 100 mg Fenofibrate (Tricor) 145 mg PO DAILY [facility] Last Admin: 06/22/16 09:10 Dose: 145 mg Fluticasone Propionate (Flonase) 1 actuation THEO DAILY [facility] Last Admin: 06/22/16 12:12 Dose: Not Given Guaifenesin (Robitussin) 100 mg PO Q4H [facility] Heparin Sodium (Porcine) (Heparin) 5,000 units SC Q12 [facility] PRN Reason: Protocol Last Admin: 06/22/16 09:11 Dose: 5,000 units Ceftriaxone Sodium (Rocephin 1 Gram Ivpb) 1 gm in 100 mls @ 100 mls/hr IVPB DAILY [facility] PRN Reason: Protocol Last Admin: 06/22/16 09:10 Dose: 100 mls/hr Insulin Human Regular (Humulin R Low) 0 units SC ACHS [facility] PRN Reason: Protocol Last Admin: 06/22/16 16:52 Dose: 1 units Ipratropium Drummond (Atrovent) 0.5 mg IH [id number] [facility] Last Admin: 06/22/16 13:45 Dose: 0.5 mg Levalbuterol HCl (Xopenex) 1.25 mg IH Q4 [facility] Last Admin: 06/22/16 15:50 Dose: 1.25 mg Levalbuterol HCl (Xopenex) 1.25 mg IH Q4 PRN PRN Reason: Shortness of Breath Metformin HCl (Glucophage) 500 mg PO BID [facility] Last Admin: 06/22/16 09:10 Dose: 500 mg Methylprednisolone (Solu-Medrol) 40 mg IVP Q12 [facility] Last Admin: 06/22/16 09:10 Dose: 40 mg Montelukast Sodium (Singulair) 10 mg PO DAILY [facility] Last Admin: 06/22/16 09:10 Dose: 10 mg Pantoprazole Sodium (Protonix Ec Tab) 40 mg PO DAILY [facility] Last Admin: 06/22/16 09:31 Dose: 40 mg Ramipril (Altace) 5 mg PO DAILY [facility] Last Admin: 06/22/16 09:31 Dose: 5 mg - Labs Labs: 06/22/16 08:00 06/22/16 08:00 PT 10.7 Seconds (9.9-11.8) 06/20/16 14:40 INR 0.99 (0.93-1.08) 06/20/16 14:40 APTT 24.7 Seconds (23.7-30.8) 06/20/16 14:40 Attending/Attestation - Attestation I have personally seen and examined this patient.: Yes I have fully participated in the care of the patient.: Yes I have reviewed all pertinent clinical information, including history, physical exam and plan: Yes Notes (Text): 06/22/16 16:57 Attending note: Patient seen and examined with resident. Patient is a 71 year old female with history of asthma, COPD, obesity, insomnia , hyperlipidemia, HTN, DM-2, osteoporosis, GERD, hysterectomy, non obstructive CAD (EF~65%) who got admitted for acute COPD exacerbation. Acute COPD exacerbation; Continues to have severe cough and exertional dyspnea. Continue oxygen, xopenex , IV Solu-Medrol. on Robitussin. Continue Rocephin and Zithromax. Mild leukocytosis; secondary to steroids. Patient is afebrile and nontoxic. Blood culture, urine culture is negative. PT evaluation appreciated. Patient is hypoxic with exertion. Continue oxygen for now. Upon discharge patient will follow up with and pulmonary .
[2016-06-22] MEDS: guaiFENesin 100 mg/5 ml Syrup UD PO SCH ×2 (17:41→20:53)
[2016-06-22] MEDS: Apap-Butalbital-Caffeine 325-50-40mg Tab PO PRN (20:53)
[2016-06-23] MEDS: Levalbuterol 1.25 MG/3 ML Inhal Soln UD IH SCH ×7 (00:10→23:12)
[2016-06-23] MEDS: guaiFENesin 100 mg/5 ml Syrup UD PO SCH ×6 (01:00→21:48)
[2016-06-23] MEDS: Ipratropium 0.02% Inhal Soln (0.5 mg/2.5 ml) UD IH SCH ×5 (04:30→23:12)
[2016-06-23 07:43] LABS: ADD MANUAL DIFF? NO
[2016-06-23 07:54] LABS: BASO # 0.01 K/mm3 (0.0-2.0); BASO % 0.1 % (0.0-3.0); GRAN # 12.76 (1.4-6.5); GRAN % 79.1 % (50.0-68.0); HEMATOCRIT 40.9 % (36.0-48.0); LYMPH # 2.8 (1.2-3.4); LYMPH % 17.1 % (22.0-35.0); MEAN CELL VOLUME 89.7 fL (80.0-105.0); MEAN CORPUSCULAR HEMOGLOBIN 30.5 pg (25.0-35.0); MEAN PLATELET VOLUME 11.4 fl (7.0-11.0); MONO # 0.6 (0.1-0.6); MONO % 3.7 % (1.0-6.0); PLATELET COUNT 257 10^3/uL (120.0-450.0); RED CELL DISTRIBUTION WIDTH 13.7 % (11.5-14.5); WHITE BLOOD COUNT 16.1 10^3/ul (4.5-11.0)
[2016-06-23 08:12] LABS: ALB/GLOB RATIO 1.1 (1.1-1.8); ALKALINE PHOSPHATASE 67 U/L (38-133); ALT/SGPT 28 U/L (7-56); AST/SGOT 26 U/L (15-39); BILIRUBIN,TOTAL 0.7 mg/dL (0.2-1.3); BLOOD UREA NITROGEN 23 mg/dL (7-21); CALCIUM 9.5 mg/dL (8.4-10.5); CARBON DIOXIDE 25 mmol/L (21-33); CHLORIDE 99 mmol/L (95-110); GFR AFRICAN-AMERICAN > 60; GLUCOSE,RANDOM 157 mg/dL (70-110); MAGNESIUM 1.8 mg/dL (1.7-2.2); POTASSIUM 4.4 mmol/L (3.6-5.0); SODIUM 141 mmol/L (132-148); TOTAL PROTEIN 8.3 g/dL (5.8-8.3)
[2016-06-23] MEDS: Insulin Reg-LOW-Coverage SC SCH ×4 (08:27→16:31)
[2016-06-23] MEDS: MethylPREDNISolone 40 mg Vial IVP SCH ×2 (10:04→21:49)
[2016-06-23] MEDS: cefTRIAXone 1 gm 1 GM/100 ML BAG IVPB SCH (10:05)
[2016-06-23] MEDS: Fluticasone Nasal 50 mcg/Spray NAS SCH (10:06)
[2016-06-23] MEDS: Pantoprazole 40 mg EC Tab PO SCH (10:06)
--- NOTE | 2016-06-23 10:50 | CP.PCM.PN ---
<Tati Baker - Last Filed: 06/23/16 15:25> Subjective - Date & Time of Evaluation Date of Evaluation: 06/23/16 Time of Evaluation: 10:49 - Subjective Subjective: PGY-1 Medicine progress note Patient seen and examined at bedside. No acute distress. Nurse reports no overnight events. Patient states that her sob and chest tightness has improved however she continues to cough. She states that chest pain and abdominal pain occur with cough. Patient denies n/v, fevers, chills, she is tolerating diet. Patient states that she sleeps with some device for breathing at home however she does not know what kind of device. Objective - Vital Signs/Intake and Output Vital Signs (last 24 hours): Temp Pulse Resp BP Pulse Ox 98.2 F 96 H 18 146/87 96 06/23/16 10:01 06/23/16 10:01 06/23/16 10:01 06/23/16 10:04 06/23/16 10:01 Intake and Output: 06/23/16 06/23/16 06:59 18:59 Intake Total 720 Balance 720 - Medications Medications: Current Medications Acetaminophen (Tylenol 325mg Tab) 650 mg PO Q6H PRN PRN Reason: Fever >100.4 F Last Admin: 06/23/16 10:21 Dose: 650 mg Acetaminophen/Butalbital/Caffeine (Fioricet) 1 tab PO Q4H PRN PRN Reason: Headache Last Admin: 06/22/16 20:53 Dose: 1 tab Aspirin (Ecotrin) 81 mg PO DAILY [facility] Last Admin: 06/23/16 10:06 Dose: 81 mg Azithromycin (Zithromax) 250 mg PO DAILY [facility] PRN Reason: Protocol Last Admin: 06/23/16 10:06 Dose: 250 mg Benzonatate (Tessalon Perles) 100 mg PO TID [facility] Last Admin: 06/23/16 10:05 Dose: 100 mg Budesonide (Pulmicort Respules) 0.5 mg IH [id number] [facility] Fenofibrate (Tricor) 145 mg PO DAILY [facility] Last Admin: 06/23/16 10:05 Dose: 145 mg Fluticasone Propionate (Flonase) 1 actuation THEO DAILY [facility] Last Admin: 06/23/16 10:06 Dose: 1 spray Guaifenesin (Robitussin) 100 mg PO Q4H [facility] Last Admin: 06/23/16 10:07 Dose: 100 mg Heparin Sodium (Porcine) (Heparin) 5,000 units SC Q12 [facility] PRN Reason: Protocol Last Admin: 06/23/16 10:06 Dose: 5,000 units Ceftriaxone Sodium (Rocephin 1 Gram Ivpb) 1 gm in 100 mls @ 100 mls/hr IVPB DAILY [facility] PRN Reason: Protocol Last Admin: 06/23/16 10:05 Dose: 100 mls/hr Insulin Human Regular (Humulin R Low) 0 units SC ACHS [facility] PRN Reason: Protocol Last Admin: 06/23/16 08:27 Dose: 1 units Ipratropium Cunningham (Atrovent) 0.5 mg IH [id number] [facility] Last Admin: 06/23/16 08:36 Dose: 0.5 mg Levalbuterol HCl (Xopenex) 1.25 mg IH Q4 [facility] Last Admin: 06/23/16 08:36 Dose: 1.25 mg Levalbuterol HCl (Xopenex) 1.25 mg IH Q4 PRN PRN Reason: Shortness of Breath Metformin HCl (Glucophage) 1,000 mg PO BID [facility] Last Admin: 06/23/16 10:05 Dose: 1,000 mg Methylprednisolone (Solu-Medrol) 40 mg IVP Q12 [facility] Last Admin: 06/23/16 10:04 Dose: 40 mg Montelukast Sodium (Singulair) 10 mg PO DAILY [facility] Last Admin: 06/23/16 10:06 Dose: 10 mg Pantoprazole Sodium (Protonix Ec Tab) 40 mg PO DAILY [facility] Last Admin: 06/23/16 10:06 Dose: 40 mg Ramipril (Altace) 5 mg PO DAILY [facility] Last Admin: 06/23/16 10:04 Dose: 5 mg - Labs Labs: 06/23/16 07:30 06/23/16 07:30 PT 10.7 Seconds (9.9-11.8) 06/20/16 14:40 INR 0.99 (0.93-1.08) 06/20/16 14:40 APTT 24.7 Seconds (23.7-30.8) 06/20/16 14:40 - Constitutional Appears: No Acute Distress - Head Exam Head Exam: ATRAUMATIC, NORMOCEPHALIC - Eye Exam Eye Exam: Normal appearance - ENT Exam ENT Exam: Mucous Membranes Moist - Respiratory Exam Respiratory Exam: Decreased Breath Sounds, Wheezes, NORMAL BREATHING PATTERN - Cardiovascular Exam Cardiovascular Exam: REGULAR RHYTHM. absent: Tachycardia, Murmur - GI/Abdominal Exam GI & Abdominal Exam: Soft, Normal Bowel Sounds. absent: Firm, Guarding, Tenderness - Extremities Exam Extremities Exam: Normal Inspection. absent: Pedal Edema - Neurological Exam Neurological Exam: Alert, Awake, Oriented x3 - Skin Skin Exam: Dry, Intact, Normal Color, Warm Assessment and Plan - Assessment and Plan (Free Text) Assessment: 71 yo female with PMH of COPD, asthma, DM, HTN, presents with COPD exacerbation with hx of cough SOB, chest tightness, and fever at home. EKG showed NSR with tachycardia and CXR wnl. Plan: 1. COPD exacerbation: - cont xopenex, singular, atrovant - cont solumedrol 40mg IV q12 - cont azithromycin and Rocephin - tylenol prn - cont tessalon perles and robitussin - procalcitonin is negative - per PT patient continues to desaturate with activity - Next of kin was called and asked to bring in the information regarding the sleeping device - patient states that she see Dr. Spaulding outpatient 2. HTN: - cont home Ramipril 5mg qd - cont to monitor 3. DM - cont metformin - Cont ISSS- low - Increased glucose most likely due to steroids 4. leukocytosis - most likely 2/2 steroids - blood cultures negative after 48 hours - urine cultures was contamination - procalcitonin is low - cont Rocephin and azithromycin PPX measures: gi- protonix dvt- heparin <Rangasamy,Ajantha - Last Filed: 06/23/16 17:32> Objective - Vital Signs/Intake and Output Vital Signs (last 24 hours): Temp Pulse Resp BP Pulse Ox 98.2 F 96 H 18 146/87 96 06/23/16 10:01 06/23/16 10:01 06/23/16 10:01 06/23/16 10:04 06/23/16 10:01 Intake and Output: 06/23/16 06/23/16 06:59 18:59 Intake Total 720 720 Balance 720 720 - Medications Medications: Current Medications Acetaminophen (Tylenol 325mg Tab) 650 mg PO Q6H PRN PRN Reason: Fever >100.4 F Last Admin: 06/23/16 10:21 Dose: 650 mg Acetaminophen/Butalbital/Caffeine (Fioricet) 1 tab PO Q4H PRN PRN Reason: Headache Last Admin: 06/22/16 20:53 Dose: 1 tab Aspirin (Ecotrin) 81 mg PO DAILY [facility] Last Admin: 06/23/16 10:06 Dose: 81 mg Azithromycin (Zithromax) 250 mg PO DAILY [facility] PRN Reason: Protocol Last Admin: 06/23/16 10:06 Dose: 250 mg Benzonatate (Tessalon Perles) 100 mg PO TID [facility] Last Admin: 06/23/16 17:16 Dose: 100 mg Budesonide (Pulmicort Respules) 0.5 mg IH [id number] [facility] Fenofibrate (Tricor) 145 mg PO DAILY [facility] Last Admin: 06/23/16 10:05 Dose: 145 mg Fluticasone Propionate (Flonase) 1 actuation THEO DAILY [facility] Last Admin: 06/23/16 10:06 Dose: 1 spray Guaifenesin (Robitussin) 100 mg PO Q4H [facility] Last Admin: 06/23/16 17:16 Dose: 100 mg Heparin Sodium (Porcine) (Heparin) 5,000 units SC Q12 [facility] PRN Reason: Protocol Last Admin: 06/23/16 10:06 Dose: 5,000 units Ceftriaxone Sodium (Rocephin 1 Gram Ivpb) 1 gm in 100 mls @ 100 mls/hr IVPB DAILY [facility] PRN Reason: Protocol Last Admin: 06/23/16 10:05 Dose: 100 mls/hr Insulin Human Regular (Humulin R Low) 0 units SC ACHS [facility] PRN Reason: Protocol Last Admin: 06/23/16 16:31 Dose: 2 units Ipratropium Cunningham (Atrovent) 0.5 mg IH [id number] [facility] Last Admin: 06/23/16 17:07 Dose: 0.5 mg Levalbuterol HCl (Xopenex) 1.25 mg IH Q4 [facility] Last Admin: 06/23/16 17:07 Dose: 1.25 mg Levalbuterol HCl (Xopenex) 1.25 mg IH Q4 PRN PRN Reason: Shortness of Breath Metformin HCl (Glucophage) 1,000 mg PO BID [facility] Last Admin: 06/23/16 17:16 Dose: 1,000 mg Methylprednisolone (Solu-Medrol) 40 mg IVP Q12 [facility] Last Admin: 06/23/16 10:04 Dose: 40 mg Montelukast Sodium (Singulair) 10 mg PO DAILY [facility] Last Admin: 06/23/16 10:06 Dose: 10 mg Pantoprazole Sodium (Protonix Ec Tab) 40 mg PO DAILY [facility] Last Admin: 06/23/16 10:06 Dose: 40 mg Ramipril (Altace) 5 mg PO DAILY [facility] Last Admin: 06/23/16 10:04 Dose: 5 mg - Labs Labs: 06/23/16 07:30 06/23/16 07:30 PT 10.7 Seconds (9.9-11.8) 06/20/16 14:40 INR 0.99 (0.93-1.08) 06/20/16 14:40 APTT 24.7 Seconds (23.7-30.8) 06/20/16 14:40 Attending/Attestation - Attestation I have personally seen and examined this patient.: Yes I have fully participated in the care of the patient.: Yes I have reviewed all pertinent clinical information, including history, physical exam and plan: Yes Notes (Text): 06/23/16 17:31 Attending note: Patient seen and examined with resident. Patient is a 71 year old female with history of asthma, COPD, obesity, insomnia , hyperlipidemia, HTN, DM-2, osteoporosis, GERD, hysterectomy, non obstructive CAD (EF~65%) who got admitted for acute COPD exacerbation. Acute COPD exacerbation; improving slowly. Continues to have cough and exertional dyspnea. Continue oxygen, xopenex , IV Solu-Medrol. on Robitussin. Continue Rocephin and Zithromax. leukocytosis; secondary to steroids. Patient is afebrile and nontoxic. Blood culture, urine culture is negative. PT evaluation appreciated. Patient is hypoxic with exertion. Continue oxygen for now. Upon discharge patient will follow up with and pulmonary .
--- NOTE | 2016-06-23 14:23 | CON ---
DATE: 06/23/2016 REASON FOR CONSULTATION: Chronic obstructive pulmonary disease. REFERRING PHYSICIAN: Dr. White. HISTORY OF PRESENT ILLNESS: The patient is a 71-year-old female with past medical history significant for asthma, chronic obstructive pulmonary disease, diabetes mellitus, hypertension, obstructive sleep apnea, who initially presented to [facility] on 06/20/2016 with a 3-day history of worsening shortness of breath at rest, dyspnea on exertion, cough, and minimal sputum production. There is no history of chest pain, coughing up of blood or chest pain made worse with deep respirations. The patient did present to [facility] with low-grade fevers. The fevers have since resolved. No history of chills or infectious exposure. No history of night sweats, weight loss or appetite change prior to the above events. No history of leg or calf pains. No history of syncope or diaphoresis. No history of recent travel or trauma. REVIEW OF SYSTEMS: No history of nausea, vomiting or diarrhea. No acute urinary symptoms. No new neurological or musculoskeletal complaints. Rest of review of systems is negative. ALLERGIES: No known allergies. SOCIAL HISTORY: Negative for tobacco, negative for alcohol. FAMILY HISTORY: No inheritable diseases. HOME MEDICATIONS: Include prednisone, Protonix, Naprosyn, Singulair, Dulera, Glucophage, Flonase, fenofibrate, Omnicef, Ecotrin, Ventolin. PHYSICAL EXAMINATION: GENERAL: The patient appears comfortable at rest. She is not short of breath. VITAL SIGNS: Temperature is 98.2, pulse 96, respirations 18, blood pressure 146 /87. Oxygen saturation on nasal cannula is 96%. HEENT: Normocephalic, atraumatic. NECK: No JVD. CARDIOVASCULAR: Positive S1, S2. No S3. LUNGS: Decreased breath sounds at the bases. Minimal rhonchi. Minimal wheezing. EXTREMITIES: Mild edema. No cyanosis, no clubbing. Calves are nontender to palpation. GASTROINTESTINAL: Abdomen is soft, nontender, nondistended. Bowel sounds are positive. SKIN: No acute rash. NEUROLOGIC: Limited at the present time. PERTINENT LABORATORY DATA: Chest x-ray was done on 06/20/2016 and reviewed. There is no active disease present. CBC: White count 16.1, hemoglobin 13.9, hematocrit 40.9, platelets of 257. Complete metabolic profile: BUN 23, glucose 157. Rest of the metabolic profile is within normal limits. IMPRESSION: 1. Acute bronchitis. 2. Chronic obstructive pulmonary disease. 3. Obstructive sleep apnea. 4. Diabetes mellitus. PLAN: The patient presents to [facility] with a 3-day history of worsening pulmonary symptoms. I did review the chest x-ray as above. The x- ray shows no acute disease. I have also reviewed the laboratory data. A mild leukocytosis is noted. This leukocytosis may very well be due to the steroid usage-- as the initial white count (prior to the steroids) was normal. On physical exam, there is mild to moderate bronchospasm noted. I will continue with the current nebulizer treatments and low-dose intravenous steroids for now. I will also add inhaled Pulmicort this morning. The patient remains on antibiotic therapy. Again, her temperatures have resolved. The patient does feel much better this morning-- compared to her initial presentation. She is clinically improved. Additional pulmonary intervention will be based on the clinical status of the patient. I did discuss the above with Dr. White at length. Thank you very much for this pulmonary consultation. Ken Perry MD cc: [id number] TT: 06/23/2016 14:22:26 Confirmation # [id number] Dictation # [id number] concha RAHMAN
[2016-06-23] MEDS: Apap-Butalbital-Caffeine 325-50-40mg Tab PO PRN (20:18)
[2016-06-23] MEDS: Budesonide 0.5 mg/2 ml Inhal Susp UD IH SCH (23:12)
[2016-06-24] MEDS: Ipratropium 0.02% Inhal Soln (0.5 mg/2.5 ml) UD IH SCH ×2 (20:44→23:27)
[2016-06-24] MEDS: Budesonide 0.5 mg/2 ml Inhal Susp UD IH SCH (20:45)
[2016-06-24] MEDS: Levalbuterol 1.25 MG/3 ML Inhal Soln UD IH SCH ×2 (20:45→23:26)
[2016-06-24] MEDS: MethylPREDNISolone 40 mg Vial IVP SCH (21:28)
[2016-06-24 22:11] VITALS: RESP 20
[2016-06-24] MEDS: Insulin Reg-LOW-Coverage SC SCH (22:31)
[2016-06-24] MEDS: guaiFENesin 100 mg/5 ml Syrup UD PO SCH (22:31)
[2016-06-24 22:59] LABS: ADD MANUAL DIFF? NO
[2016-06-25] MEDS: guaiFENesin 100 mg/5 ml Syrup UD PO SCH ×3 (01:56→09:30)
[2016-06-25] MEDS: Levalbuterol 1.25 MG/3 ML Inhal Soln UD IH SCH ×3 (04:15→11:21)
[2016-06-25] MEDS: Ipratropium 0.02% Inhal Soln (0.5 mg/2.5 ml) UD IH SCH ×3 (04:15→11:20)
[2016-06-25 06:59] LABS: ADD MANUAL DIFF? NO
[2016-06-25 07:15] LABS: BASO # 0.02 K/mm3 (0.0-2.0); BASO % 0.2 % (0.0-3.0); GRAN # 8.95 (1.4-6.5); GRAN % 72.6 % (50.0-68.0); HEMATOCRIT 39.4 % (36.0-48.0); LYMPH # 2.8 (1.2-3.4); LYMPH % 22.3 % (22.0-35.0); MEAN CELL VOLUME 88.9 fL (80.0-105.0); MEAN CORPUSCULAR HGB CONC 33.8 g/dl (31.0-37.0); MEAN PLATELET VOLUME 11.1 fl (7.0-11.0); MONO # 0.6 (0.1-0.6); MONO % 4.9 % (1.0-6.0); PLATELET COUNT 247 10^3/uL (120.0-450.0); RED CELL DISTRIBUTION WIDTH 13.2 % (11.5-14.5); WHITE BLOOD COUNT 12.3 10^3/ul (4.5-11.0)
[2016-06-25 07:42] LABS: ALB/GLOB RATIO 1.2 (1.1-1.8); ALKALINE PHOSPHATASE 58 U/L (38-133); ALT/SGPT 31 U/L (7-56); AST/SGOT 19 U/L (15-39); BILIRUBIN,TOTAL 0.6 mg/dL (0.2-1.3); BLOOD UREA NITROGEN 32 mg/dL (7-21); CARBON DIOXIDE 28 mmol/L (21-33); CHLORIDE 100 mmol/L (98-107); GFR AFRICAN-AMERICAN > 60; GLUCOSE,RANDOM 170 mg/dL (70-110); POTASSIUM 4.4 mmol/L (3.6-5.0); SODIUM 138 mmol/L (132-148); TOTAL PROTEIN 7.2 g/dL (5.8-8.3)
[2016-06-25] MEDS: Budesonide 0.5 mg/2 ml Inhal Susp UD IH SCH (07:43)
[2016-06-25] MEDS: Insulin Reg-LOW-Coverage SC SCH ×2 (07:54→12:43)
--- NOTE | 2016-06-25 08:18 | PN ---
DATE: 06/25/2016 SUBJECTIVE: The patient appears very comfortable this morning. She is not short of breath at rest. PHYSICAL EXAMINATION: VITAL SIGNS (last noted in the computer): Temperature is 98.4, pulse this morning is approximately 80, respiratory rate 18, blood pressure 122/70. Oxygen saturation on nasal cannula is 98%. HEENT: Normocephalic, atraumatic. No JVD. CARDIOVASCULAR: Positive S1, S2. No S3. LUNGS: Improved breath sounds at the bases. Much less rhonchi. No wheezing. EXTREMITIES: Mild edema. No cyanosis, no clubbing. Calves are nontender to palpation. GASTROINTESTINAL: Abdomen is soft, nontender, nondistended. Bowel sounds are positive. SKIN: No acute rash. NEUROLOGIC: Limited at the present time. IMPRESSION: 1. Acute bronchitis. 2. Chronic obstructive pulmonary disease. 3. Obstructive sleep apnea. 4. Diabetes mellitus. PLAN: The patient appears very comfortable this morning. She is not short of breath at rest. Her cough is less. She states to feeling much better overall. On physical exam, there is significantly less bronchospasm appreciated. In addition, there is no significant alveolar-arterial gradient. I will continue with the current nebulizer treatments and change to oral steroids this morning. The patient remains on antibiotic therapy. There are no temperatures noted. The leukocytosis has almost completely resolved. Clinical status of the patient is significantly improved -- compared to the initial presentation. I will discuss the above with the attending physician later this morning. Ken Perry MD cc: [phone] TT: 06/25/2016 08:15:45 Confirmation # [id number] Dictation # [id number] en MTDD
[2016-06-25] MEDS: Pantoprazole 40 mg EC Tab PO SCH (09:29)
[2016-06-25] MEDS: cefTRIAXone 1 gm 1 GM/100 ML BAG IVPB SCH (09:29)
[2016-06-25 09:31] VITALS: BP 158/87
[2016-06-25 10:32] VITALS: TEMP 98.7; O2SAT 99
--- NOTE | 2016-06-25 12:18 | CP.PCM.DIS ---
<Tati Baker - Last Filed: 06/25/16 13:43> Provider - Provider Date of Admission: 06/21/16 10:07 Attending physician: Jennifer White MD Primary care physician: Tiburcio Lacy MD Time Spent in preparation of Discharge (in minutes): 40 Hospital Course - Lab Results Lab Results: Most Recent Lab Values WBC 12.3 10^3/ul (4.5-11.0) H D 06/25/16 06:45 RBC 4.43 10^6/uL (3.5-6.1) 06/25/16 06:45 Hgb 13.3 gm/dL (12.0-16.0) 06/25/16 06:45 Hct 39.4 % (36.0-48.0) 06/25/16 06:45 MCV 88.9 fL (80.0-105.0) 06/25/16 06:45 MCH 30.0 pg (25.0-35.0) 06/25/16 06:45 MCHC 33.8 g/dl (31.0-37.0) 06/25/16 06:45 RDW 13.2 % (11.5-14.5) 06/25/16 06:45 Plt Count 247 10^3/uL (120.0-450.0) 06/25/16 06:45 MPV 11.1 fl (7.0-11.0) H 06/25/16 06:45 Gran % 72.6 % (50.0-68.0) H 06/25/16 06:45 Lymph % (Auto) 22.3 % (22.0-35.0) 06/25/16 06:45 [place] % (Auto) 4.9 % (1.0-6.0) 06/25/16 06:45 Eos % (Auto) 0.0 % (1.5-5.0) L 06/25/16 06:45 Baso % (Auto) 0.2 % (0.0-3.0) 06/25/16 06:45 Gran # 8.95 (1.4-6.5) H 06/25/16 06:45 Lymph # 2.8 (1.2-3.4) 06/25/16 06:45 [place] # 0.6 (0.1-0.6) 06/25/16 06:45 Eos # 0.0 (0.0-0.7) 06/25/16 06:45 Baso # 0.02 K/mm3 (0.0-2.0) 06/25/16 06:45 ESR 12 mm/hr (0.0-20.0) 06/20/16 14:40 PT 10.7 Seconds (9.9-11.8) 06/20/16 14:40 INR 0.99 (0.93-1.08) 06/20/16 14:40 APTT 24.7 Seconds (23.7-30.8) 06/20/16 14:40 pO2 48 mm/Hg (30-55) 06/20/16 14:40 VBG pH 7.33 (7.32-7.43) 06/20/16 14:40 VBG pCO2 60.0 (40-60) 06/20/16 14:40 VBG HCO3 31.6 mmol/l (21-28) H 06/20/16 14:40 VBG Total CO2 33.4 mmol.L (22-28) H 06/20/16 14:40 VBG O2 Sat (Calc) 87.1 % (40-65) H 06/20/16 14:40 VBG Base Excess 4.0 mmol/L (0.0-2.0) H 06/20/16 14:40 VBG Potassium 3.9 mmol/L (3.6-5.2) 06/20/16 14:40 Sodium 141.0 mmol/L (132-148) 06/20/16 14:40 Chloride 110.0 mmol/L (98-107) H 06/20/16 14:40 Glucose 141 mg/dl (65-105) H 06/20/16 14:40 Lactate 1.6 mmol/L (0.7-2.1) 06/20/16 14:40 FiO2 21.0 % 06/20/16 14:40 Sodium 138 mmol/L (132-148) 06/25/16 06:45 Potassium 4.4 mmol/L (3.6-5.0) 06/25/16 06:45 Chloride 100 mmol/L (98-107) 06/25/16 06:45 Carbon Dioxide 28 mmol/L (21-33) 06/25/16 06:45 Anion Gap 14 (10-20) 06/25/16 06:45 BUN 32 mg/dL (7-21) H 06/25/16 06:45 Creatinine 0.6 mg/dL (0.5-1.4) 06/25/16 06:45 Est GFR ( Amer) > 60 06/25/16 06:45 Est GFR (Non-Af Amer) > 60 06/25/16 06:45 POC Glucose (mg/dL) 138 mg/dL (65-110) H 06/25/16 11:10 Random Glucose 170 mg/dL (70-110) H 06/25/16 06:45 Calcium 9.0 mg/dL (8.4-10.5) 06/25/16 06:45 Phosphorus 3.8 mg/dL (2.5-4.5) 06/21/16 07:30 Magnesium 1.8 mg/dL (1.7-2.2) 06/23/16 07:30 Total Bilirubin 0.6 mg/dL (0.2-1.3) 06/25/16 06:45 AST 19 U/L (15-39) 06/25/16 06:45 ALT 31 U/L (7-56) 06/25/16 06:45 Alkaline Phosphatase 58 U/L (38-133) 06/25/16 06:45 Lactate Dehydrogenase 470 U/L (333-699) 06/20/16 14:40 Total Creatine Kinase 151 U/L (35-230) 06/20/16 14:40 Troponin I < 0.01 ng/mL 06/20/16 14:40 C-React Prot High Sens 4.72 mg/L (1.00-3.00) H 06/20/16 14:40 NT-Pro-B Natriuret Pep 29.3 pg/mL (0-450) 06/20/16 14:40 Total Protein 7.2 g/dL (5.8-8.3) 06/25/16 06:45 Albumin 3.8 g/dL (3.0-4.8) 06/25/16 06:45 Globulin 3.3 gm/dL 06/25/16 06:45 Albumin/Globulin Ratio 1.2 (1.1-1.8) 06/25/16 06:45 Lipase 107 U/L (23-300) 06/20/16 14:40 Procalcitonin < 0.05 NG/ML (0.19-0.49) L 06/20/16 17:00 Plasma Cortisol PM 7.48 ug/dL (1.7-14.1) 06/20/16 14:40 Venous Blood Potassium 3.9 mmol/L (3.6-5.2) 06/20/16 14:40 Urine Color Yellow (YELLOW) 06/20/16 17:00 Urine Appearance Clear (CLEAR) 06/20/16 17:00 Urine pH 6.0 (4.7-8.0) 06/20/16 17:00 Ur Specific [place] 1.025 (1.005-1.035) 06/20/16 17:00 Urine Protein Negative mg/dL (<30 mg/dL) 06/20/16 17:00 Urine Glucose (UA) Negative mg/dL (NEGATIVE) 06/20/16 17:00 Urine Ketones Negative mg/dL (NEGATIVE) 06/20/16 17:00 Urine Blood Trace-intact (NEGATIVE) H 06/20/16 17:00 Urine Nitrate Negative (NEGATIVE) 06/20/16 17:00 Urine Bilirubin Negative (NEGATIVE) 06/20/16 17:00 Urine Urobilinogen 0.2 E.U./dL (<1 E.U./dL) 06/20/16 17:00 Ur Leukocyte Esterase Negative [place]/uL (NEGATIVE) 06/20/16 17:00 Urine RBC 5 - 10 /hpf (0-2) 06/20/16 17:00 Urine WBC 1 - 3 /hpf (0-6) 06/20/16 17:00 Ur Epithelial Cells 4 - 5 /hpf (0-5) 06/20/16 17:00 - Hospital Course Hospital Course: 71 yo F w/PMHx of asthma, COPD, DM, HTN, presents with 3 day hx of cough with white small volume sputum, SOB, chest tightness associated with cough, and home measured temperature of 100.4. EKG showed NSR with tachycardia and CXR within normal limits. Patient was admitted for COPD exacerbation. Started on solumedrol and breathing treatments. Patient was started on antibiotics and given cough suppressants. Procalcitonin is negative. PT reported oxygen desaturation with activity. Pulm was consulted. Patient begin to improve. Pt re- evaluated patient, she did not have oxygen desaturation with activity. Patient was started on HTN medication. Metformin was increased due to hyperglycemia. Patient is stable for discharge home, she states that her cough has improved and she is feeling better. Discharge instructions are to follow up with PMD and line assembler in 1 week. New medications were prednisone taper, Zithromax 4 days , ventolin inhaler, ramipril and metformin. Prescription sent to patient's pharmacy. Patient is aware of hospital course, and discharge plan. Discharge Exam - Head Exam Head Exam: ATRAUMATIC, NORMOCEPHALIC - Eye Exam Eye Exam: Normal appearance - Respiratory Exam Respiratory Exam: Clear to PA & Lateral, NORMAL BREATHING PATTERN, UNREMARKABLE. absent: Rhonchi, Wheezes, Respiratory Distress - Cardiovascular Exam Cardiovascular Exam: REGULAR RHYTHM. absent: Tachycardia, Systolic Murmur - Neurological Exam Neurological exam: Alert, Oriented x3 - Skin Skin Exam: Dry, Intact, Normal Color, Warm Discharge Plan - Discharge Medications Prescriptions: Albuterol HFA [Ventolin HFA 90 mcg/actuation (8 g)] 2 puff IH [id number] #1 puff Azithromycin [Zithromax] 500 mg PO DAILY #4 tab Fluticasone Nasal [Flonase] 1 spray THEO DAILY #1 Guaifenesin/Dextromethorphan [Diabetic Tussin] 10 ml PO Q6 PRN #1 bottle PRN Reason: Cough metFORMIN [glucOPHAGE] 1,000 mg PO BID #40 tab predniSONE [Prednisone] 20 mg PO DAILY #3 tab predniSONE [Prednisone] 10 mg PO DAILY #3 tab predniSONE [predniSONE Tab] 40 mg PO DAILY #3 tab predniSONE [Prednisone] 30 mg PO DAILY #3 tab predniSONE [predniSONE Tab] 5 mg PO DAILY #3 tab Ramipril [Altace] 5 mg PO DAILY #15 cap - Follow Up Plan Condition: FAIR Disposition: HOME/ ROUTINE Instructions: COPD (Chronic Obstructive Pulmonary Disease) (DC) Additional Instructions: Patient is stable for discharge home. Discharge instructions: - follow up with PMD, Dr. Lacy in 1 week - follow up with line assembler in 1 week New medications: - prednisone taper, start with 40mg for 3 day, then 30mg for 3 days, 20 mg for 3 days, 10mg for 3 days, and then 5mg for 3 days - Zithromax 500mg for 4 days - ventolin inhaler - increased metformin to 1000mg BID Referrals: Timoteo Spaulding MD [Staff Provider] - Tiburcio Lacy MD [Primary Care Provider] - <Jennifer White - Last Filed: 06/25/16 14:08> Provider - Provider Date of Admission: 06/21/16 10:07 Attending physician: Jennifer White MD Primary care physician: Tiburcio Lacy MD Hospital Course - Lab Results Lab Results: Most Recent Lab Values WBC 12.3 10^3/ul (4.5-11.0) H D 06/25/16 06:45 RBC 4.43 10^6/uL (3.5-6.1) 06/25/16 06:45 Hgb 13.3 gm/dL (12.0-16.0) 06/25/16 06:45 Hct 39.4 % (36.0-48.0) 06/25/16 06:45 MCV 88.9 fL (80.0-105.0) 06/25/16 06:45 MCH 30.0 pg (25.0-35.0) 06/25/16 06:45 MCHC 33.8 g/dl (31.0-37.0) 06/25/16 06:45 RDW 13.2 % (11.5-14.5) 06/25/16 06:45 Plt Count 247 10^3/uL (120.0-450.0) 06/25/16 06:45 MPV 11.1 fl (7.0-11.0) H 06/25/16 06:45 Gran % 72.6 % (50.0-68.0) H 06/25/16 06:45 Lymph % (Auto) 22.3 % (22.0-35.0) 06/25/16 06:45 [place] % (Auto) 4.9 % (1.0-6.0) 06/25/16 06:45 Eos % (Auto) 0.0 % (1.5-5.0) L 06/25/16 06:45 Baso % (Auto) 0.2 % (0.0-3.0) 06/25/16 06:45 Gran # 8.95 (1.4-6.5) H 06/25/16 06:45 Lymph # 2.8 (1.2-3.4) 06/25/16 06:45 [place] # 0.6 (0.1-0.6) 06/25/16 06:45 Eos # 0.0 (0.0-0.7) 06/25/16 06:45 Baso # 0.02 K/mm3 (0.0-2.0) 06/25/16 06:45 ESR 12 mm/hr (0.0-20.0) 06/20/16 14:40 PT 10.7 Seconds (9.9-11.8) 06/20/16 14:40 INR 0.99 (0.93-1.08) 06/20/16 14:40 APTT 24.7 Seconds (23.7-30.8) 06/20/16 14:40 pO2 48 mm/Hg (30-55) 06/20/16 14:40 VBG pH 7.33 (7.32-7.43) 06/20/16 14:40 VBG pCO2 60.0 (40-60) 06/20/16 14:40 VBG HCO3 31.6 mmol/l (21-28) H 06/20/16 14:40 VBG Total CO2 33.4 mmol.L (22-28) H 06/20/16 14:40 VBG O2 Sat (Calc) 87.1 % (40-65) H 06/20/16 14:40 VBG Base Excess 4.0 mmol/L (0.0-2.0) H 06/20/16 14:40 VBG Potassium 3.9 mmol/L (3.6-5.2) 06/20/16 14:40 Sodium 141.0 mmol/L (132-148) 06/20/16 14:40 Chloride 110.0 mmol/L (98-107) H 06/20/16 14:40 Glucose 141 mg/dl (65-105) H 06/20/16 14:40 Lactate 1.6 mmol/L (0.7-2.1) 06/20/16 14:40 FiO2 21.0 % 06/20/16 14:40 Sodium 138 mmol/L (132-148) 06/25/16 06:45 Potassium 4.4 mmol/L (3.6-5.0) 06/25/16 06:45 Chloride 100 mmol/L (98-107) 06/25/16 06:45 Carbon Dioxide 28 mmol/L (21-33) 06/25/16 06:45 Anion Gap 14 (10-20) 06/25/16 06:45 BUN 32 mg/dL (7-21) H 06/25/16 06:45 Creatinine 0.6 mg/dL (0.5-1.4) 06/25/16 06:45 Est GFR ( Amer) > 60 06/25/16 06:45 Est GFR (Non-Af Amer) > 60 06/25/16 06:45 POC Glucose (mg/dL) 138 mg/dL (65-110) H 06/25/16 11:10 Random Glucose 170 mg/dL (70-110) H 06/25/16 06:45 Calcium 9.0 mg/dL (8.4-10.5) 06/25/16 06:45 Phosphorus 3.8 mg/dL (2.5-4.5) 06/21/16 07:30 Magnesium 1.8 mg/dL (1.7-2.2) 06/23/16 07:30 Total Bilirubin 0.6 mg/dL (0.2-1.3) 06/25/16 06:45 AST 19 U/L (15-39) 06/25/16 06:45 ALT 31 U/L (7-56) 06/25/16 06:45 Alkaline Phosphatase 58 U/L (38-133) 06/25/16 06:45 Lactate Dehydrogenase 470 U/L (333-699) 06/20/16 14:40 Total Creatine Kinase 151 U/L (35-230) 06/20/16 14:40 Troponin I < 0.01 ng/mL 06/20/16 14:40 C-React Prot High Sens 4.72 mg/L (1.00-3.00) H 06/20/16 14:40 NT-Pro-B Natriuret Pep 29.3 pg/mL (0-450) 06/20/16 14:40 Total Protein 7.2 g/dL (5.8-8.3) 06/25/16 06:45 Albumin 3.8 g/dL (3.0-4.8) 06/25/16 06:45 Globulin 3.3 gm/dL 06/25/16 06:45 Albumin/Globulin Ratio 1.2 (1.1-1.8) 06/25/16 06:45 Lipase 107 U/L (23-300) 06/20/16 14:40 Procalcitonin < 0.05 NG/ML (0.19-0.49) L 06/20/16 17:00 Plasma Cortisol PM 7.48 ug/dL (1.7-14.1) 06/20/16 14:40 Venous Blood Potassium 3.9 mmol/L (3.6-5.2) 06/20/16 14:40 Urine Color Yellow (YELLOW) 06/20/16 17:00 Urine Appearance Clear (CLEAR) 06/20/16 17:00 Urine pH 6.0 (4.7-8.0) 06/20/16 17:00 Ur Specific [place] 1.025 (1.005-1.035) 06/20/16 17:00 Urine Protein Negative mg/dL (<30 mg/dL) 06/20/16 17:00 Urine Glucose (UA) Negative mg/dL (NEGATIVE) 06/20/16 17:00 Urine Ketones Negative mg/dL (NEGATIVE) 06/20/16 17:00 Urine Blood Trace-intact (NEGATIVE) H 06/20/16 17:00 Urine Nitrate Negative (NEGATIVE) 06/20/16 17:00 Urine Bilirubin Negative (NEGATIVE) 06/20/16 17:00 Urine Urobilinogen 0.2 E.U./dL (<1 E.U./dL) 06/20/16 17:00 Ur Leukocyte Esterase Negative [place]/uL (NEGATIVE) 06/20/16 17:00 Urine RBC 5 - 10 /hpf (0-2) 06/20/16 17:00 Urine WBC 1 - 3 /hpf (0-6) 06/20/16 17:00 Ur Epithelial Cells 4 - 5 /hpf (0-5) 06/20/16 17:00 Attending/Attestation - Attestation I have personally seen and examined this patient.: Yes I have fully participated in the care of the patient.: Yes I have reviewed all pertinent clinical information, including history, physical exam and plan: Yes Notes (Text): 06/25/16 14:06 Attending note: Patient seen and examined with resident. Patient is a 71 year old female with history of asthma, COPD, obesity, insomnia , hyperlipidemia, HTN, DM-2, osteoporosis, GERD, hysterectomy who got admitted for acute COPD exacerbation. Acute COPD exacerbation; improving slowly. Treated with oxygen, xopenex , IV Solu-Medrol, Robitussin. Treated w IV Rocephin and Zithromax. leukocytosis; secondary to steroids. Patient is afebrile and nontoxic. Blood culture, urine culture is negative. pulmonary evaluation appreciated. PT evaluation appreciated. Upon discharge patient will follow up with and pulmonary . diagnosis; COPD Sleep apnea Obesity Diabetes Hyperlipidemia
[2016-06-25 14:12] VITALS: PULSE 97
[2016-06-25 14:49] LABS: ALB/GLOB RATIO 1.1 (1.1-1.8); ALKALINE PHOSPHATASE 71 U/L (38-133); ALT/SGPT 31 U/L (7-56); AST/SGOT 20 U/L (15-39); BILIRUBIN,TOTAL 0.6 mg/dL (0.2-1.3); BLOOD UREA NITROGEN 30 mg/dL (7-21); CALCIUM 9.7 mg/dL (8.4-10.5); CARBON DIOXIDE 27 mmol/L (21-33); CHLORIDE 99 mmol/L (98-107); GFR AFRICAN-AMERICAN > 60; GLUCOSE,RANDOM 171 mg/dL (70-110); POTASSIUM 4.3 mmol/L (3.6-5.0); SODIUM 138 mmol/L (132-148); TOTAL PROTEIN 7.5 g/dL (5.8-8.3)
[2016-06-25 16:39] LABS: BASO # 0.01 K/mm3 (0.0-2.0); BASO % 0.1 % (0.0-3.0); GRAN # 8.76 (1.4-6.5); GRAN % 74.8 % (50.0-68.0); LYMPH # 2.5 (1.2-3.4); MEAN CELL VOLUME 89.8 fL (80.0-105.0); MEAN CORPUSCULAR HEMOGLOBIN 30.3 pg (25.0-35.0); MEAN CORPUSCULAR HGB CONC 33.7 g/dl (31.0-37.0); MEAN PLATELET VOLUME 11.5 fl (7.0-11.0); MONO # 0.5 (0.1-0.6); MONO % 4.1 % (1.0-6.0); PLATELET COUNT 237 10^3/uL (120.0-450.0); RED CELL DISTRIBUTION WIDTH 13.4 % (11.5-14.5); WHITE BLOOD COUNT 11.7 10^3/ul (4.5-11.0)
== END 2016-06-25 14:20 | disposition home or self-care (01) | DRG 192 ==
LOC: ED 13:45 → ERH 16:13 → 3RSO 18:14 → OBSVTOIN 06-21 10:07
PROVIDERS: ADMIT Internal Medicine; ATTEND Internal Medicine
DX: J44.1 Chronic obstructive pulmonary disease with (acute) exacerbation (principal); E11.65 Type 2 diabetes mellitus with hyperglycemia; J44.0 Chronic obstructive pulmonary disease with (acute) lower respiratory infection; I10 Essential (primary) hypertension; G47.33 Obstructive sleep apnea (adult) (pediatric); J20.9 Acute bronchitis, unspecified; E78.5 Hyperlipidemia, unspecified; I25.10 Atherosclerotic heart disease of native coronary artery without angina pectoris; J45.909 Unspecified asthma, uncomplicated; K21.9 Gastro-esophageal reflux disease without esophagitis; M81.0 Age-related osteoporosis without current pathological fracture; R09.02 Hypoxemia; D72.829 Elevated white blood cell count, unspecified; T38.0X5A Adverse effect of glucocorticoids and synthetic analogues, initial encounter; E66.9 Obesity, unspecified; Z79.899 Other long term (current) drug therapy; Z83.3 Family history of diabetes mellitus; Z87.442 Personal history of urinary calculi; Z87.891 Personal history of nicotine dependence; Z90.710 Acquired absence of both cervix and uterus; H26.9 Unspecified cataract; L71.9 Rosacea, unspecified; R40.2412 Glasgow coma scale score 13-15, at arrival to emergency department

== ENCOUNTER 2016-09-02 05:55 | Observation (INO) | payer OTHER ==
[2016-09-02] MEDS ORDERED: Sodium Chloride 0.9% 1,000 ML IV STA (06:09)
--- NOTE | 2016-09-02 06:12 | ED PDOC ---
Arrival/HPI <Tanner Willard - Last Filed: 09/02/16 06:43> <Vincent Polo - Last Filed: 09/02/16 06:46> - General Chief Complaint: Abdominal Pain Time Seen by Provider: 09/02/16 05:56 - History of Present Illness Narrative History of Present Illness (Text): 09/02/16 06:11 71yo F w/ PMHx of asthma, COPD, DM not on insulin, HTN is coming to the hospital for acute onset abdominal pain, nausea, vomiting, and diarrhea since earlier last night. States she has gone to the bathroom more than 8 times, with associated nausea and vomiting at the same time. States she did not eat anything different than usual; no one else at home has the same problem. denies travel. denies all other symptoms; [place], CP, SOB, dysuria/freq/urg, or lower extremity pain/swelling, fevers/chills. PMHx: COPD, asthma, DM, HTN Psxhx: hysterectomy, 5 C Sections Allergies: NKDA Meds: singulair 10, omeprazole 40, fenofibrate 135 qd, metformin 500 mg PO BID , ramipril 5 mg PO QD social: former smoker of 12 years duration of 2 cig /day. denies etoh, and ilicit drugs FamHx: DM, no CA (Tanner Willard) Past Medical History - Provider Review Nursing Documentation Reviewed: Yes - Travel History Have you recently traveled outside [place] w/in the past 3 mons?: No - Past History Past History: No Previous - Infectious Disease Hx of Infectious Diseases: None - Tetanus Immunization Tetanus Immunization: Unknown - Cardiac Hx Cardiac Disorders: Yes Hx Hypertension: Yes - Pulmonary Hx Respiratory Disorders: Yes Hx Asthma: Yes - Neurological Hx Neurological Disorder: No - HEENT Hx HEENT Disorder: Yes Hx Cataracts: Yes (RIGHT EYE) - Renal Hx Renal Disorder: Yes Hx Kidney Stones: Yes - Endocrine/Metabolic Hx Endocrine Disorders: Yes Hx Diabetes Mellitus Type 2: Yes - Hematological/Oncological Hx Blood Disorders: Yes Other/Comment: VITAMIN D DEFICIENCY - Integumentary Hx Dermatological Disorder: Yes Other/Comment: ROSACEA - Musculoskeletal/Rheumatological Hx Musculoskeletal Disorders: No Hx Falls: No - Gastrointestinal Hx Gastrointestinal Disorders: Yes Hx Gastroesophageal Reflux: Yes - Genitourinary/Gynecological Hx Genitourinary Disorders: No - Psychiatric Hx Psychophysiologic Disorder: No Hx Emotional Abuse: No Hx Physical Abuse: No Hx Substance Use: No - Surgical History Hx Section: Yes (x 5 C/S) Hx Hysterectomy: Yes - Anesthesia Hx Anesthesia: Yes Hx Anesthesia Reactions: No Hx Malignant Hyperthermia: No - Suicidal Assessment Feels Threatened In Home Enviroment: No <Tanner Willard - Last Filed: 09/02/16 06:43> Family/Social History - Physician Review Nursing Documentation Reviewed: Yes Family/Social History: No Known Family HX Smoking Status: Never Smoked Hx Alcohol Use: No Hx Substance Use: No Hx Substance Use Treatment: No <Tanner Willard - Last Filed: 09/02/16 06:43> Allergies/Home Meds <Tanner Willard - Last Filed: 09/02/16 06:43> <Vincent Polo - Last Filed: 09/02/16 06:46> Allergies/Adverse Reactions: Allergies No Known Allergies Allergy (Verified 09/22/15 00:01) Home Medications: Home Meds Medication Instructions Recorded Confirmed Mometasone/Formoterol [Dulera 200 2 puff INH BID 03/27/15 10/09/15 Mcg/5 Mcg Inhaler] Montelukast [Singulair] 10 mg PO DAILY 03/27/15 10/09/15 Naproxen 375 mg PO DAILY 03/27/15 10/09/15 Pantoprazole [Protonix EC Tab] 40 mg PO DAILY 03/27/15 10/09/15 Albuterol HFA [Ventolin HFA 90 2 puff IH [id number] 09/25/15 10/09/15 mcg/actuation (8 g)] Fenofibrate Nanocrystallized 145 mg PO DAILY 09/30/15 10/09/15 [Fenofibrate] Review of Systems - Review of Systems Constitutional: absent: Fatigue, Weight Change Eyes: absent: Vision Changes, Photophobia ENT: absent: Hearing Changes Respiratory: absent: SOB, Cough Cardiovascular: absent: Chest Pain Gastrointestinal: Abdominal Pain, Stool Changes, Diarrhea, Nausea, Vomiting. absent: Constipation Genitourinary Female: absent: Dysuria, Frequency Musculoskeletal: absent: Arthralgias, Back Pain Skin: absent: Rash, Pruritis Neurological: absent: Headache Endocrine: absent: Diaphoresis Hemo/Lymphatic: absent: Adenopathy Psychiatric: absent: Anxiety <Tanner Willard - Last Filed: 09/02/16 06:43> Physical Exam Temperature: Afebrile Blood Pressure: Normal Pulse: Regular Respiratory Rate: Normal Appearance: Positive for: Well-Appearing Pain Distress: None Mental Status: Positive for: Alert and Oriented X 3 - Systems Exam Head: Present: Atraumatic Pupils: Present: PERRL Extroacular Muscles: Present: EOMI Conjunctiva: Present: Normal Mouth: Present: Moist Mucous Membranes Neck: Present: Normal Range of Motion Respiratory/Chest: Present: Clear to Auscultation, Good Air Exchange Cardiovascular: Present: Regular Rate and Rhythm. No: Murmurs Abdomen: Present: Tenderness (lower abdomen), Normal Bowel Sounds, Other ( morbidly obese abdomen soft). No: Distention, Peritoneal Signs, Rebound, Guarding, McBurney's Point Tender, Rovsing's Sign Present, Hernias, Feeding Tubes Back: Present: Normal Inspection. No: CVA Tenderness Upper Extremity: Present: Normal Inspection. No: Cyanosis, Edema Lower Extremity: Present: Normal Inspection. No: Edema Neurological: Present: GCS=15, CN II-XII Intact, Speech Normal Skin: Present: Warm Psychiatric: Present: Alert <Tanner Willard - Last Filed: 09/02/16 06:43> Medical Decision Making <Tanner Willard - Last Filed: 09/02/16 06:43> <Vincent Polo - Last Filed: 09/02/16 06:46> ED Course and Treatment: 09/02/16 06:15 Will order EKG, Chest X-Ray, Abdomen/Pelvis Cat Scan UA CBC CMP Lipase Cardiac Enzymes ACS vs gastroenteritis vs colitis reassess and dispo 09/02/16 06:24 Sinus bradycardia at 45bpm 09/02/16 06:43 Case will be signed out to Dr. Molina patient is currently hemodynamically stable resting comfortably in bed awaiting labs and cat scan (Tanner Willard) Impression: Pt seen and evaluated by medical insurance coding specialist. Pt, whose past medical history includes asthma, COPD, diabetes, and hypertension, presented for abdominal pain , nausea, vomiting, diarrhea since yesterday evening. Aware and agree with HPI, clinical findings, plan, and management. Plan: -- CT Abdomen and Pelvis -- Labs, cardiac enzymes, lipase -- Urinalysis -- IV fluids -- Zofran -- Protonix -- Reassess and disposition (Vincent Polo) - Lab Interpretations Lab Results: 09/02/16 06:20 Lab Results 09/02/16 06:20: WBC 17.3 H D, RBC 4.57, Hgb 13.9, Hct 40.2, MCV 88.0, MCH 30.4, MCHC 34.6, RDW 13.1, Plt Count 214, MPV 10.7, Gran % 78.4 H, Lymph % (Auto) 17.0 L, [place] % (Auto) 4.0, Eos % (Auto) 0.5 L, Baso % (Auto) 0.1, Gran # 13.57 H , Lymph # 2.9, [place] # 0.7 H, Eos # 0.1, Baso # 0.02 09/02/16 06:10: POC Glucose (mg/dL) 119 H - RAD Interpretation Radiology Orders: 09/02/16 06:10 ABDOMEN & PELVIS [ABD & PELVIS W/O PO OR IV CONT] [CT] Stat CHEST PORTABLE [RAD] Stat - Medication Orders Current Medication Orders: Sodium Chloride (Sodium Chloride 0.9%) 1,000 mls @ 999 mls/hr IV .Q1H1M STA Stop: 09/02/16 07:09 Discontinued Medications Ondansetron HCl (Zofran Inj) 4 mg IVP STAT STA Stop: 09/02/16 06:10 Pantoprazole Sodium (Protonix Inj) 40 mg IVP STAT STA Stop: 09/02/16 06:22 - PA / [employer]TER / Resident Statement JUVE has reviewed & agrees with the documentation as recorded. JUVE has examined the patient and agrees with the treatment plan. <Vincent Polo - Last Filed: 09/02/16 06:46> Disposition/Present on Arrival - Present on Arrival Any Indicators Present on Arrival: Yes History of DVT/PE: No History of Uncontrolled Diabetes: No Urinary Catheter: No History of Decub. Ulcer: No History Surgical Site Infection Following: None - Disposition Have Diagnosis and Disposition been Completed?: No Disposition Time: 06:43 <Tanner Willard - Last Filed: 09/02/16 06:43> - Present on Arrival Any Indicators Present on Arrival: No - Disposition Have Diagnosis and Disposition been Completed?: No Disposition Time: 07:00 <Vincent Polo - Last Filed: 09/02/16 06:46> - Disposition Diagnosis: Abdominal pain Condition: FAIR Forms: [employer] (Malay)
[2016-09-02 06:34] LABS: BASO # 0.02 K/mm3 (0.0-2.0); BASO % 0.1 % (0.0-3.0); EOS # 0.1 (0.0-0.7); EOS % 0.5 % (1.5-5.0); GRAN # 13.57 (1.4-6.5); GRAN % 78.4 % (50.0-68.0); HEMOGLOBIN 13.9 gm/dL (12.0-16.0); LYMPH # 2.9 (1.2-3.4); MEAN CORPUSCULAR HEMOGLOBIN 30.4 pg (25.0-35.0); MEAN CORPUSCULAR HGB CONC 34.6 g/dl (31.0-37.0); MEAN PLATELET VOLUME 10.7 fl (7.0-11.0); MONO # 0.7 (0.1-0.6); PLATELET COUNT 214 10^3/uL (120.0-450.0); RBC 4.57 10^6/uL (3.5-6.1); RED CELL DISTRIBUTION WIDTH 13.1 % (11.5-14.5); WHITE BLOOD COUNT 17.3 10^3/ul (4.5-11.0)
[2016-09-02 06:49] LABS: ALB/GLOB RATIO 1.3 (1.1-1.8); ALT/SGPT 35 U/L (7-56); AST/SGOT 35 U/L (15-39); BLOOD UREA NITROGEN 15 mg/dL (7-21); CALCIUM 9.2 mg/dL (8.4-10.5); GFR AFRICAN-AMERICAN > 60; GFR NON-AFRICAN AMERICAN > 60; LIPASE 286 U/L (23-300)
[2016-09-02 07:08] LABS: TROPONIN I < 0.01 ng/mL
--- NOTE | 2016-09-02 07:15 | ED PDOC ---
Physical Exam Vital Signs Temp Pulse Resp BP Pulse Ox 09/02/16 08:59 92 H 18 143/69 96 09/02/16 06:00 97.9 F 100 H 20 129/68 95 Finger Stick Blood Glucose: 119 Medical Decision Making ED Course and Treatment: 09/02/16 07:00 Patient signed out to me by Dr. Polo. 71 year old female, whose past medical history includes COPD, hypertension, and diabetes, who presents to the emergency department complaining of diarrhea for a few hours. Pending CT. 09/02/16 08:21 Patient with tachycardia and leukocytosis - 2/4 SIRS criteria. lactic acid is 2.5. Code Sepsis called on patient. IVF added, per protocol as well as iv antibiotics. 09/02/16 09:[address] a/p results are unremarkable. Given underlying immunocompromised state with DM and leukocytosis with code sepsis -will admit for iv antibiotics. Case discussed with Dr. White. - Lab Interpretations Lab Results: 09/02/16 06:20 09/02/16 06:20 Lab Results 09/02/16 08:00: pO2 31, VBG pH 7.24 L, VBG pCO2 66.0 H*, VBG HCO3 28.3 H, VBG Total CO2 30.3 H, VBG O2 Sat (Calc) 61.1, VBG Base Excess -0.7 L, VBG Potassium 3.7, Glucose 141 H, Lactate 2.5 H, FiO2 21.0, Sodium 142.0, Chloride 108.0 H, Venous Blood Potassium 3.7 09/02/16 06:20: Sodium 144, Potassium 3.6, Chloride 105, Carbon Dioxide 27, Anion Gap 16, BUN 15, Creatinine 0.7, Est GFR ( Amer) > 60, Est GFR (Non- Af Amer) > 60, Random Glucose 149 H, Calcium 9.2, Total Bilirubin 0.5, AST 35, ALT 35, Alkaline Phosphatase 72, Lactate Dehydrogenase 411, Total Creatine Kinase 53, Troponin I < 0.01, Total Protein 7.1, Albumin 4.0, Globulin 3.1, Albumin/Globulin Ratio 1.3, Lipase 286 09/02/16 06:20: WBC 17.3 H D, RBC 4.57, Hgb 13.9, Hct 40.2, MCV 88.0, MCH 30.4, MCHC 34.6, RDW 13.1, Plt Count 214, MPV 10.7, Gran % 78.4 H, Lymph % (Auto) 17.0 L, [place] % (Auto) 4.0, Eos % (Auto) 0.5 L, Baso % (Auto) 0.1, Gran # 13.57 H , Lymph # 2.9, [place] # 0.7 H, Eos # 0.1, Baso # 0.02 09/02/16 06:10: POC Glucose (mg/dL) 119 H - RAD Interpretation Radiology Orders: 09/02/16 06:10 ABDOMEN & PELVIS [ABD & PELVIS W/O PO OR IV CONT] [CT] Stat CHEST PORTABLE [RAD] Stat - Medication Orders Current Medication Orders: Discontinued Medications Diphenhydramine HCl (Benadryl) 25 mg IVP STAT STA Stop: 09/02/16 08:52 Last Admin: 09/02/16 08:59 Dose: 25 mg Diphenhydramine HCl (Benadryl) Confirm Administered Dose 50 mg .ROUTE .STK-MED ONE Stop: 09/02/16 08:53 Last Admin: 09/02/16 09:45 Dose: Sodium Chloride (Sodium Chloride 0.9%) 1,000 mls @ 999 mls/hr IV .Q1H1M STA Stop: 09/02/16 07:09 Last Admin: 09/02/16 06:45 Dose: 999 mls/hr Sodium Chloride (Sodium Chloride 0.9%) 1,100 mls @ 999 mls/hr IV .Q1H7M STA Stop: 09/02/16 09:31 Last Admin: 09/02/16 09:04 Dose: 999 mls/hr Metronidazole (Flagyl) 500 mg in 100 mls @ 100 mls/hr IVPB STAT STA PRN Reason: Protocol Stop: 09/02/16 09:25 Ceftriaxone Sodium (Rocephin 1 Gram Ivpb) 1 gm in 100 mls @ 200 mls/hr IV ONCE STA PRN Reason: Protocol Stop: 09/02/16 08:55 Last Admin: 09/02/16 09:04 Dose: 200 mls/hr Morphine Sulfate (Morphine) 2 mg IVP STAT STA Stop: 09/02/16 08:14 Last Admin: 07/27/17 09:04 Dose: Morphine Sulfate (Morphine) 2 mg IVP STAT STA Stop: 09/02/16 08:32 Last Admin: 09/02/16 09:02 Dose: 2 mg Ondansetron HCl (Zofran Inj) 4 mg IVP STAT STA Stop: 09/02/16 06:10 Last Admin: 09/02/16 06:47 Dose: 4 mg Pantoprazole Sodium (Protonix Inj) 40 mg IVP STAT STA Stop: 09/02/16 06:22 Last Admin: 09/02/16 06:47 Dose: 40 mg - Scribe Statement The provider has reviewed the documentation as recorded by the Heriberto Castellano Provider Scribe Attestation: All medical record entries made by the Heriberto were at my direction and personally dictated by me. I have reviewed the chart and agree that the record accurately reflects my personal performance of the history, physical exam, medical decision making, and the department course for this patient. I have also personally directed, reviewed, and agree with the discharge instructions and disposition. Disposition/Present on Arrival - Present on Arrival Any Indicators Present on Arrival: No History of DVT/PE: No History of Uncontrolled Diabetes: No Urinary Catheter: No History of Decub. Ulcer: No History Surgical Site Infection Following: None - Disposition Have Diagnosis and Disposition been Completed?: Yes Diagnosis: Abdominal pain, SIRS (systemic inflammatory response syndrome) Disposition: HOSPITALIZED Disposition Time: 08:20 Patient Plan: Admission Patient Problems: Current Active Problems Problem Status Onset Abdominal pain Acute Condition: FAIR Forms: [employer] ([place]olan)
[2016-09-02 08:12] LABS: VENOUS BLOOD GAS BASE EXCESS -0.7 mmol/L (0.0-2.0); VENOUS BLOOD GAS PO2 31 mm/Hg (30-55); VENOUS BLOOD PH 7.24 (7.32-7.43)
[2016-09-02] MEDS ORDERED: Morphine 2 mg/ml ISec IVP STA (08:13)
[2016-09-02] MEDS ORDERED: metroNIDAZOLE IV 500 mg/100 ml 500 MG/100 ML BAG IVPB STA (08:26)
[2016-09-02] MEDS ORDERED: cefTRIAXone 1 gm 1 GM/100 ML BAG IV STA (08:26)
[2016-09-02] MEDS ORDERED: Morphine 4 mg/ml ISec IVP STA (08:31)
[2016-09-02] MEDS ORDERED: DiphenhydrAMINE 50 mg/ml Inj IVP STA (08:51)
[2016-09-02] MEDS ORDERED: DiphenhydrAMINE 50 mg/ml Inj ONE (08:52)
--- NOTE | 2016-09-02 09:50 | CT ---
PROCEDURE: CT Abdomen and Pelvis without oral or IV contrast. HISTORY: abdominal pain COMPARISON: Contrast prior abdomen pelvis CT 03/29/2015. TECHNIQUE: Contiguous axial images of the abdomen and pelvis. Oral contrast was administered. No IV contrast given. Coronal and Sagittal reformats generated. Radiation dose: Total exam DLP = 897 mGy-cm. This CT exam was performed using one or more of the following dose reduction techniques: Automated exposure control, adjustment of the mA and/or kV according to patient size, and/or use of iterative reconstruction technique. FINDINGS: LOWER THORAX: Unremarkable. LIVER: Unremarkable. No gross lesion or ductal dilatation. GALLBLADDER AND BILE DUCTS: Unremarkable. PANCREAS: Unremarkable. No mass. No ductal dilatation. SPLEEN: Unremarkable. No splenomegaly. ADRENALS: Unremarkable. KIDNEYS AND URETERS: A 6 mm intrarenal calculus is again identified at the lower pole right kidney which is nonobstructive. No radiodense urolithiasis is associated with the left kidney. No significant perinephric reaction bilaterally. Retro peritoneal calcified lymph nodes or granuloma are infrequently seen at the mid retroperitoneum. BLADDER: Decompressed. REPRODUCTIVE: Prior hysterectomy. APPENDIX: Unremarkable. BOWEL: Retained food distends the stomach moderately. Small large bowel loops are grossly nonfocal appearing are lack of oral contrast limits are interpretation as well as lack of intravenous contrast. Moderate fecal loading is seen throughout various proximal to mid large bowel segments. . No bowel obstruction evident. No gross mural thickening. PERITONEUM: No measure edema, ascites or free intrarenal gas is seen in the interval. LYMPH NODES: Unremarkable. No enlarged lymph nodes. VASCULATURE: Unremarkable. No aortic aneurysm. BONES: No fracture or destructive lesion. Advanced degenerative disease seen at the inferior lumbar spine. OTHER FINDINGS: None. IMPRESSION: No acute abdomen or pelvis findings at this time. An intrarenal calculus is again noted at the lower pole right kidney, nonobstructive. Yes If symptoms persist or worsen, follow-up contrast CT is advised there is no contraindication. Findings were discussed with Dr. Curran 09/02/2016 08:55 a.m..
--- NOTE | 2016-09-02 10:27 | RAD ---
HISTORY: abdominal pain COMPARISON: 06/20/2016 FINDINGS: LUNGS: No active pulmonary disease. PLEURA: No significant pleural effusion identified, no pneumothorax apparent. CARDIOVASCULAR: Normal. OSSEOUS STRUCTURES: No significant abnormalities. VISUALIZED UPPER ABDOMEN: Normal. OTHER FINDINGS: None. IMPRESSION: No active disease.
[2016-09-02] MEDS ORDERED: Pantoprazole 40mg/100ml IVPB 40 MG/100 ML BAG IVPB SCH (10:30)
[2016-09-02] MEDS: cefTRIAXone 1 gm 1 GM/100 ML BAG IVPB SCH (11:02)
--- NOTE | 2016-09-02 11:05 | CARD ---
APPROVED REPORT EKG Measurement Heart [id number] <Conclusion> Marked sinus bradycardia Abnormal ECG
[2016-09-02 11:08] LABS: VENOUS BLOOD GAS BASE EXCESS -0.4 mmol/L (0.0-2.0); VENOUS BLOOD GAS PO2 26 mm/Hg (30-55); VENOUS BLOOD PH 7.24 (7.32-7.43)
[2016-09-02] MEDS: Sodium Chloride 0.9% 1,000 ML IV SCH ×2 (11:08→20:15)
[2016-09-02 11:30] LABS: URINE BILIRUBIN NEGATIVE (NEGATIVE); URINE BLOOD TRACE-INTACT (NEGATIVE); URINE GLUCOSE (UA) NEGATIVE (NEGATIVE); URINE LEUKOCYTE ESTERASE NEGATIVE Leu/uL (NEGATIVE); URINE NITRATE NEGATIVE (NEGATIVE); URINE PROTEIN NEGATIVE mg/dL (<30 mg/dL); URINE UROBILINOGEN 0.2 E.U./dL (<1 E.U./dL)
[2016-09-02 11:31] LABS: URINE APPEARANCE CLEAR (CLEAR); URINE COLOR YELLOW (YELLOW)
[2016-09-02 11:52] LABS: URINE BACTERIA TRACE (NEG); URINE EPITHELIAL CELLS 0 - 2 /hpf (0-5); URINE RBC 0 - 2 /hpf (0-2); URINE WBC 0 - 2 /hpf (0-6)
[2016-09-02 13:11] VITALS: BMI 29.0
[2016-09-02] MEDS ORDERED: Pneumococcal 23-Valent Vaccine IM ONE (13:11)
[2016-09-02] MEDS: Albuterol 0.083% Inhal Sol (2.5 mg/3 mL) UD INH SCH ×2 (13:21→19:38)
[2016-09-02] MEDS: metroNIDAZOLE IV 500 mg/100 ml 500 MG/100 ML BAG IVPB SCH ×2 (14:01→21:52)
--- NOTE | 2016-09-02 14:34 | CP.PCM.CON ---
<Kiera Lr - Last Filed: 09/02/16 15:54> History of Present Illness - History of Present Illness History of Present Illness: Jessica Briggs is a 71F w/ hx of HTN, HL, COPD, and DM who presented who presented to the ED with complaints of nausea, vomiting diarrhea, and abdominal pain. Pt states that the onset was 1 day ago. States that she first had symptoms of nausea and vomiting w/ concurrent abd pain. Pt states that she has too numerous to count episodes of both emesis and diarrhea. Denies any melena, hematemsis, and BRBPR. Pt states that her abd pain was 10 out of 10 and diffuse. She describes it has crampy and intermittent. She cannot recall any alleviating factors, but states that vomiting is an aggravating factor. Pt denies eating recently out. No sick contacts. No recent abx use and no recent hospitalizations. Pt was hospitalized in 2016 for hematemesis, EGD revealed gastritis and esophagitis. H. Pylori +, unsure about subsequent tx. ROS- 12 point ROS was conducted, other than what was mentioned above, its otherwise neg. Endoscopy hx: EGD 2016: esophagitis and gastritis( + h. Pylori) Past Patient History - Infectious Disease Hx of Infectious Diseases: None - Tetanus Immunizations Tetanus Immunization: Unknown - Past Medical History & Family History Past Medical History?: Yes - Past Social History Smoking Status: Former Smoker - CARDIAC Hx Cardiac Disorders: Yes Hx Hypertension: Yes - PULMONARY Hx Respiratory Disorders: Yes (SMOKES CIGARETTES H/O QUIT.) Hx Asthma: Yes Hx Chronic Obstructive Pulmonary Disease (COPD): Yes (O2 AT HOME AND NEBULIZER [place].) Hx Pneumonia: Yes - NEUROLOGICAL Hx Neurological Disorder: No - HEENT Hx HEENT Problems: Yes Hx Cataracts: Yes (RIGHT EYE) - RENAL Hx Chronic Kidney Disease: Yes Hx Kidney Stones: Yes - ENDOCRINE/METABOLIC Hx Endocrine Disorders: Yes Hx Diabetes Mellitus Type 2: Yes - HEMATOLOGICAL/ONCOLOGICAL Hx Blood Disorders: Yes Other/Comment: VITAMIN D DEFICIENCY - INTEGUMENTARY Hx Dermatological Problems: Yes Other/Comment: ROSACEA - MUSCULOSKELETAL/RHEUMATOLOGICAL Hx Musculoskeletal Disorders: No Hx Falls: No - GASTROINTESTINAL Hx Gastrointestinal Disorders: Yes Hx Gastroesophageal Reflux: Yes - GENITOURINARY/GYNECOLOGICAL Hx Genitourinary Disorders: Yes (5 C SECTIONS, HYSTERECTOMY) Hx Urinary Tract Infection: Yes - PSYCHIATRIC Hx Psychophysiologic Disorder: No Hx Emotional Abuse: No Hx Physical Abuse: No Hx Substance Use: No - SURGICAL HISTORY Hx Surgeries: Yes (5 C SECTIONS) Hx Hysterectomy: Yes - ANESTHESIA Hx Anesthesia: Yes Hx Anesthesia Reactions: No Hx Malignant Hyperthermia: No Meds Allergies/Adverse Reactions: Allergies Allergy/AdvReac Type Severity Reaction Status Date / Time No Known Allergies Allergy Verified 09/02/16 11:42 - Medications Medications: Current Medications Albuterol Sulfate (Albuterol 0.083% Inhal Anay (2.5 Mg/3 Ml) Ud) 2.5 mg INH Q6 [facility] Last Admin: 09/02/16 13:21 Dose: 2.5 mg Metronidazole (Flagyl) 500 mg in 100 mls @ 100 mls/hr IVPB Q8 [facility] PRN Reason: Protocol Last Admin: 09/02/16 14:01 Dose: 100 mls/hr Ceftriaxone Sodium (Rocephin 1 Gram Ivpb) 1 gm in 100 mls @ 100 mls/hr IVPB DAILY [facility] PRN Reason: Protocol Last Admin: 09/02/16 11:02 Dose: Not Given Sodium Chloride (Sodium Chloride 0.9%) 1,000 mls @ 100 mls/hr IV .Q10H [facility] Last Admin: 09/02/16 11:08 Dose: 100 mls/hr Insulin Human Regular (Humulin R Med) 0 units SC ACHS [facility] PRN Reason: Protocol Ondansetron HCl (Zofran Inj) 4 mg IVP Q4H PRN PRN Reason: Nausea/Vomiting Pantoprazole Sodium (Protonix Inj) 40 mg IVP Q12 [facility] Last Admin: 09/02/16 13:59 Dose: 40 mg Physical Exam - Head Exam Head Exam: ATRAUMATIC, NORMOCEPHALIC - ENT Exam ENT Exam: Mucous Membranes Moist, Normal Exam - Respiratory Exam Respiratory Exam: Clear to Auscultation Bilateral, NORMAL BREATHING PATTERN. absent: Rales, Rhonchi, Wheezes - Cardiovascular Exam Cardiovascular Exam: REGULAR RHYTHM, +S1, +S2 - GI/Abdominal Exam GI & Abdominal Exam: Hyperactive Bowel Sounds, Soft. absent: Organomegaly, Rebound, Rigid - Extremities Exam Extremities exam: Positive for: normal inspection - Neurological Exam Neurological exam: Alert, Oriented x3 - Psychiatric Exam Psychiatric exam: Normal Affect, Normal Mood Results - Vital Signs Recent Vital Signs: Last Vital Signs Temp 97.9 F 09/02/16 12:49 Pulse 86 09/02/16 12:49 Resp 20 09/02/16 12:49 BP 115/69 09/02/16 12:49 Pulse Ox 94 L 09/02/16 11:01 - Labs Result Diagrams: 09/02/16 06:20 09/02/16 06:20 Labs: Laboratory Results - last 24 hr 09/02/16 09/02/16 09/02/16 11:00 11:00 12:01 pO2 26 L VBG pH 7.24 L VBG pCO2 67.0 H* VBG HCO3 28.7 H VBG Total CO2 30.8 H VBG O2 Sat (Calc) 52.2 VBG Base Excess -0.4 L VBG Potassium 4.6 Sodium 141.0 Chloride 109.0 H Glucose 131 H Lactate 1.5 FiO2 21.0 POC Glucose (mg/dL) 119 H Venous Blood Potassium 4.6 Urine Color Yellow Urine Appearance Clear Urine pH 6.0 Ur Specific [place] 1.015 Urine Protein Negative Urine Glucose (UA) Negative Urine Ketones Negative Urine Blood Trace-intact H Urine Nitrate Negative Urine Bilirubin Negative Urine Urobilinogen 0.2 Ur Leukocyte Esterase Negative Urine RBC 0 - 2 Urine WBC 0 - 2 Ur Epithelial Cells 0 - 2 Urine Bacteria Trace Assessment & Plan - Assessment and Plan (Free Text) Assessment: Jessica Briggs is a 71F w/ hx of esophagititis and gastritis who presented to the ED with complaints of nausea, vomiting or diarrhea. CT imaging did not reveal any specefic findings thou no PO contrast was given Gastroenteritis likely infectuous -advance diet as tolerated -continue IV fluids -IV protonix 40 mg daily, no need for drip -send for stool cultures and for c.diff toxin -anti emetics as needed -pain control as per primary team -would hold on abx for now, likely viral -add h. pylori stool antigen to check for clearance d/w Dr. Heard <Anand Heard - Last Filed: 09/02/16 17:43> Meds - Medications Medications: Current Medications Albuterol Sulfate (Albuterol 0.083% Inhal Anay (2.5 Mg/3 Ml) Ud) 2.5 mg INH Q6 [facility] Last Admin: 09/02/16 13:21 Dose: 2.5 mg Metronidazole (Flagyl) 500 mg in 100 mls @ 100 mls/hr IVPB Q8 [facility] PRN Reason: Protocol Last Admin: 09/02/16 14:01 Dose: 100 mls/hr Ceftriaxone Sodium (Rocephin 1 Gram Ivpb) 1 gm in 100 mls @ 100 mls/hr IVPB DAILY [facility] PRN Reason: Protocol Last Admin: 09/02/16 11:02 Dose: Not Given Sodium Chloride (Sodium Chloride 0.9%) 1,000 mls @ 100 mls/hr IV .Q10H [facility] Last Admin: 09/02/16 11:08 Dose: 100 mls/hr Insulin Human Regular (Humulin R Med) 0 units SC ACHS [facility] PRN Reason: Protocol Last Admin: 09/02/16 17:28 Dose: Not Given Ondansetron HCl (Zofran Inj) 4 mg IVP Q4H PRN PRN Reason: Nausea/Vomiting Pantoprazole Sodium (Protonix Inj) 40 mg IVP Q12 [facility] Last Admin: 09/02/16 13:59 Dose: 40 mg Results - Vital Signs Recent Vital Signs: Last Vital Signs Temp 99 F 09/02/16 16:00 Pulse 80 09/02/16 16:00 Resp 18 09/02/16 16:00 BP 128/67 09/02/16 16:00 Pulse Ox 99 09/02/16 16:00 - Labs Result Diagrams: 09/02/16 06:20 09/02/16 06:20 Labs: Laboratory Results - last 24 hr 09/02/16 09/02/16 09/02/16 11:00 11:00 12:01 pO2 26 L VBG pH 7.24 L VBG pCO2 67.0 H* VBG HCO3 28.7 H VBG Total CO2 30.8 H VBG O2 Sat (Calc) 52.2 VBG Base Excess -0.4 L VBG Potassium 4.6 Sodium 141.0 Chloride 109.0 H Glucose 131 H Lactate 1.5 FiO2 21.0 POC Glucose (mg/dL) 119 H Venous Blood Potassium 4.6 Urine Color Yellow Urine Appearance Clear Urine pH 6.0 Ur Specific [place] 1.015 Urine Protein Negative Urine Glucose (UA) Negative Urine Ketones Negative Urine Blood Trace-intact H Urine Nitrate Negative Urine Bilirubin Negative Urine Urobilinogen 0.2 Ur Leukocyte Esterase Negative Urine RBC 0 - 2 Urine WBC 0 - 2 Ur Epithelial Cells 0 - 2 Urine Bacteria Trace 09/02/16 16:03 pO2 VBG pH VBG pCO2 VBG HCO3 VBG Total CO2 VBG O2 Sat (Calc) VBG Base Excess VBG Potassium Sodium Chloride Glucose Lactate FiO2 POC Glucose (mg/dL) 101 Venous Blood Potassium Urine Color Urine Appearance Urine pH Ur Specific [place] Urine Protein Urine Glucose (UA) Urine Ketones Urine Blood Urine Nitrate Urine Bilirubin Urine Urobilinogen Ur Leukocyte Esterase Urine RBC Urine WBC Ur Epithelial Cells Urine Bacteria Attending/Attestation - Attestation I have personally seen and examined this patient.: Yes I have fully participated in the care of the patient.: Yes I have reviewed all pertinent clinical information: Yes Notes (Text): 09/02/16 17:41 71 year old female with h/o esophagititis, H pylori gastritis s/p treatment admitted with abdominal pain, n/v, and diarrhea. 1. Gastroenteritis Plan: -CT reviewed, unremarkable -mild leukocytosis noted -likely infectious gastroenteritis -recommend supportive care with IV fluids, pain control, and anti-emetics -recommend protonix 40 mg daily -check stool ag for h pylori considering h/o treatment in the past to confirm eradication
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
--- NOTE | 2016-09-02 15:32 | CP.PCM.PN ---
<ADDIRAMONA - Last Filed: 09/02/16 17:21> Subjective - Date & Time of Evaluation Date of Evaluation: 09/02/16 Time of Evaluation: 14:00 - Subjective Subjective: Code sepsis A code sepsis was called at 0821 for the patient. This is a followup note. Patient has responded well to fluids. Lactate 1.5. T97.9, BP 115/69, HR 86. Pt being admitted to medicine floors for further management. Objective - Vital Signs/Intake and Output Vital Signs (last 24 hours): Temp Pulse Resp BP Pulse Ox 97.9 F 86 20 115/69 94 L 09/02/16 12:49 09/02/16 12:49 09/02/16 12:49 09/02/16 12:49 09/02/16 11:01 - Medications Medications: Current Medications Albuterol Sulfate (Albuterol 0.083% Inhal Anay (2.5 Mg/3 Ml) Ud) 2.5 mg INH Q6 WOJCIECH Last Admin: 09/02/16 13:21 Dose: 2.5 mg Metronidazole (Flagyl) 500 mg in 100 mls @ 100 mls/hr IVPB Q8 WOJCIECH PRN Reason: Protocol Last Admin: 09/02/16 14:01 Dose: 100 mls/hr Ceftriaxone Sodium (Rocephin 1 Gram Ivpb) 1 gm in 100 mls @ 100 mls/hr IVPB DAILY WOJCIECH PRN Reason: Protocol Last Admin: 09/02/16 11:02 Dose: Not Given Sodium Chloride (Sodium Chloride 0.9%) 1,000 mls @ 100 mls/hr IV .Q10H WOJCIECH Last Admin: 09/02/16 11:08 Dose: 100 mls/hr Insulin Human Regular (Humulin R Med) 0 units SC ACHS WOJCIECH PRN Reason: Protocol Ondansetron HCl (Zofran Inj) 4 mg IVP Q4H PRN PRN Reason: Nausea/Vomiting Pantoprazole Sodium (Protonix Inj) 40 mg IVP Q12 WOJCIECH Last Admin: 09/02/16 13:59 Dose: 40 mg <Jennifer White - Last Filed: 09/03/16 14:30> Objective - Vital Signs/Intake and Output Vital Signs (last 24 hours): Temp Pulse Resp BP Pulse Ox 99.0 F 83 20 167/89 H 94 L 09/03/16 06:00 09/03/16 06:00 09/03/16 06:00 09/03/16 06:00 09/03/16 06:00 Intake and Output: 09/03/16 09/03/16 06:59 18:59 Intake Total 2100 Balance 2100 - Medications Medications: Current Medications Albuterol Sulfate (Albuterol 0.083% Inhal Anay (2.5 Mg/3 Ml) Ud) 2.5 mg INH [id number] WOJCIECH Last Admin: 09/03/16 13:28 Dose: 2.5 mg Metronidazole (Flagyl) 500 mg in 100 mls @ 100 mls/hr IVPB Q8 WOJCIECH PRN Reason: Protocol Last Admin: 09/03/16 06:07 Dose: 100 mls/hr Ceftriaxone Sodium (Rocephin 1 Gram Ivpb) 1 gm in 100 mls @ 100 mls/hr IVPB DAILY WOJCIECH PRN Reason: Protocol Last Admin: 09/03/16 09:06 Dose: 100 mls/hr Sodium Chloride (Sodium Chloride 0.9%) 1,000 mls @ 100 mls/hr IV .Q10H WOJCIECH Last Admin: 09/03/16 09:08 Dose: 100 mls/hr Insulin Human Regular (Humulin R Med) 0 units SC ACHS WOJCIECH PRN Reason: Protocol Last Admin: 09/03/16 12:54 Dose: 1 units Loperamide HCl (Imodium) 2 mg PO QID PRN PRN Reason: Diarrhea Ondansetron HCl (Zofran Inj) 4 mg IVP Q4H PRN PRN Reason: Nausea/Vomiting - Labs Labs: 09/03/16 06:30 09/03/16 06:30 Attending/Attestation - Attestation I have personally seen and examined this patient.: Yes I have fully participated in the care of the patient.: Yes I have reviewed all pertinent clinical information, including history, physical exam and plan: Yes Notes (Text): 09/03/16 14:28 attending note; Patient is a 71-year old female with PMHx GERD, DM2, HTN, HLD, Asthma, arthritis, and back pain is admitted with several episodes of vomiting and diarrhea. most likely infectious diarrhea. CT abdomen is negative colitis. Started on IV fluids. Clear liquids as tolerated. GI evaluation requested. code sepsis: on IV Rocephin and Flagyl. repeat lactate is normal.
[2016-09-02] MEDS: Insulin Reg-MEDIUM-Coverage SC SCH ×2 (17:28→22:00)
--- NOTE | 2016-09-02 19:47 | PCM.SEPTIC ---
Sepsis Progress Note - Reassessment Type Date of Evaluation: 09/02/16 Time of Evaluation: 14:20 Reassessment Type: Non-invasive reassessment - Non Invasive Reassessment Were the most recent vital sign reviewed: Yes Vital Sign (Latest): Temp Pulse Resp BP Pulse Ox 99 F 80 18 128/67 99 09/02/16 16:00 09/02/16 16:00 09/02/16 16:00 09/02/16 16:00 09/02/16 16:00 Cardiovascular: Yes: Regular Rate, Rhythm Respiratory: Yes: Normal Breath Sounds Capillary Refill: Normal (Less than 2 sec) Skin: Normal Color
[2016-09-03] MEDS: Albuterol 0.083% Inhal Sol (2.5 mg/3 mL) UD INH SCH ×3 (01:01→13:28)
[2016-09-03] MEDS: metroNIDAZOLE IV 500 mg/100 ml 500 MG/100 ML BAG IVPB SCH (06:07)
[2016-09-03 07:22] LABS: BASO # 0.02 K/mm3 (0.0-2.0); BASO % 0.4 % (0.0-3.0); EOS # 0.1 (0.0-0.7); EOS % 1.3 % (1.5-5.0); GRAN # 2.51 (1.4-6.5); GRAN % 46.8 % (50.0-68.0); HEMOGLOBIN 11.9 gm/dL (12.0-16.0); LYMPH # 2.5 (1.2-3.4); LYMPH % 46.5 % (22.0-35.0); MEAN CELL VOLUME 88.3 fL (80.0-105.0); MEAN CORPUSCULAR HEMOGLOBIN 29.5 pg (25.0-35.0); MEAN CORPUSCULAR HGB CONC 33.4 g/dl (31.0-37.0); MEAN PLATELET VOLUME 10.8 fl (7.0-11.0); MONO # 0.3 (0.1-0.6); PLATELET COUNT 176 10^3/uL (120.0-450.0); RBC 4.03 10^6/uL (3.5-6.1); RED CELL DISTRIBUTION WIDTH 13.2 % (11.5-14.5); WHITE BLOOD COUNT 5.4 10^3/ul (4.5-11.0)
[2016-09-03 08:28] LABS: ALB/GLOB RATIO 1.3 (1.1-1.8); ALBUMIN 3.5 g/dL (3.0-4.8); ALT/SGPT 30 U/L (7-56); AST/SGOT 25 U/L (15-39); BLOOD UREA NITROGEN 9 mg/dL (7-21); CALCIUM 8.1 mg/dL (8.4-10.5); GFR AFRICAN-AMERICAN > 60; GFR NON-AFRICAN AMERICAN > 60; HDL CHOLESTEROL 35 mg/dL (29-60)
[2016-09-03 08:30] VITALS: BP 167/89; PULSE 83; RESP 20; TEMP 99; O2SAT 94
[2016-09-03 08:39] LABS: LDL CHOLESTEROL 88 mg/dL (0-129)
[2016-09-03] MEDS: Insulin Reg-MEDIUM-Coverage SC SCH ×2 (09:01→12:54)
[2016-09-03] MEDS: cefTRIAXone 1 gm 1 GM/100 ML BAG IVPB SCH (09:06)
[2016-09-03] MEDS: Sodium Chloride 0.9% 1,000 ML IV SCH (09:08)
--- NOTE | 2016-09-03 09:20 | CP.PCM.PN ---
Addendum entered and electronically signed by Kiera Lr DO 09/03/16 09:45: Original Note: <Kiera Lr - Last Filed: 09/03/16 09:25> Subjective - Date & Time of Evaluation Date of Evaluation: 09/03/16 Time of Evaluation: 09:00 - Subjective Subjective: PGY 4 Follow-up Pt seen and examined bedside Currently denies any nausea, vomiting, and diarrhea Had bout of emesis was yesterday States she had a soft formed BM in the AM wants to eat + flatus still have slight abd pain 4 out of 10 LLQ and LUQ No other complaints ROS: 12 point ROS conducted, neg otherwise Objective - Vital Signs/Intake and Output Vital Signs (last 24 hours): Temp Pulse Resp BP Pulse Ox 99.0 F 83 20 167/89 H 94 L 09/03/16 06:00 09/03/16 06:00 09/03/16 06:00 09/03/16 06:00 09/03/16 06:00 Intake and Output: 09/03/16 09/03/16 06:59 18:59 Intake Total 2100 Balance 2100 - Medications Medications: Current Medications Albuterol Sulfate (Albuterol 0.083% Inhal Anay (2.5 Mg/3 Ml) Ud) 2.5 mg INH [id number] WOJCIECH Last Admin: 09/03/16 08:04 Dose: 2.5 mg Metronidazole (Flagyl) 500 mg in 100 mls @ 100 mls/hr IVPB Q8 WOJCIECH PRN Reason: Protocol Last Admin: 09/03/16 06:07 Dose: 100 mls/hr Ceftriaxone Sodium (Rocephin 1 Gram Ivpb) 1 gm in 100 mls @ 100 mls/hr IVPB DAILY WOJCIECH PRN Reason: Protocol Last Admin: 09/02/16 11:02 Dose: Not Given Sodium Chloride (Sodium Chloride 0.9%) 1,000 mls @ 100 mls/hr IV .Q10H WOJCIECH Last Admin: 09/02/16 20:15 Dose: 100 mls/hr Insulin Human Regular (Humulin R Med) 0 units SC ACHS WOJCIECH PRN Reason: Protocol Last Admin: 09/02/16 22:00 Dose: Not Given Ondansetron HCl (Zofran Inj) 4 mg IVP Q4H PRN PRN Reason: Nausea/Vomiting Pantoprazole Sodium (Protonix Inj) 40 mg IVP Q12 WOJCIECH Last Admin: 09/02/16 21:53 Dose: 40 mg - Labs Labs: 09/03/16 06:30 09/03/16 06:30 - Constitutional Appears: Well, No Acute Distress - Head Exam Head Exam: ATRAUMATIC, NORMOCEPHALIC - Eye Exam Eye Exam: Normal appearance - ENT Exam ENT Exam: Mucous Membranes Moist, Normal Exam - Respiratory Exam Respiratory Exam: Clear to Ausculation Bilateral, NORMAL BREATHING PATTERN. absent: Rales, Rhonchi, Wheezes - Cardiovascular Exam Cardiovascular Exam: REGULAR RHYTHM, +S1, +S2 - GI/Abdominal Exam GI & Abdominal Exam: Soft, Tenderness, Normal Bowel Sounds - Extremities Exam Extremities Exam: absent: Calf Tenderness, Joint Swelling - Neurological Exam Neurological Exam: Alert, Awake, Oriented x3 - Psychiatric Exam Psychiatric exam: Normal Affect, Normal Mood - Skin Skin Exam: Dry, Intact, Normal Color, Warm Assessment and Plan - Assessment and Plan (Free Text) Assessment: Jessica Briggs is a 71F w/ hx of esophagititis and gastritis who presented to the ED with complaints of nausea, vomiting or diarrhea. CT imaging did not reveal any specific findings thou no PO contrast was given Gastroenteritis likely infectious -advance diet as tolerated -continue IV fluids -switch to PO protonix 40mg daily, once able to take PO -anti emetics as needed -pain control as per primary team -would hold on abx for now, likely viral -follow-up with PCP and may follow-up with us as outpt if she desires -f/u h. pylori stool antigen will sign off for now, please let us now if you need additional assistance Will d/w Dr. Heard <Anand Heard - Last Filed: 09/03/16 19:40> Objective - Vital Signs/Intake and Output Vital Signs (last 24 hours): Temp Pulse Resp BP Pulse Ox 99.0 F 83 20 167/89 H 94 L 09/03/16 06:00 09/03/16 06:00 09/03/16 06:00 09/03/16 06:00 09/03/16 06:00 Intake and Output: 09/03/16 09/04/16 18:59 06:59 Intake Total 1125 Balance 1125 - Labs Labs: 09/03/16 06:30 07/28/17 06:30 Attending/Attestation - Attestation I have personally seen and examined this patient.: Yes I have fully participated in the care of the patient.: Yes I have reviewed all pertinent clinical information, including history, physical exam and plan: Yes Notes (Text): 09/03/16 19:39 71 year old female admitted with abdominal pain, n/v, now resolved. 1. Gastroenteritis Plan: -improved -diet as tolerated -likely viral gastroenteritis -ok to [place] home
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
== END 2016-09-03 16:03 | disposition home or self-care (01) ==
LOC: ED 05:55 → ERH 09:42 → INTOOBSV 09:42 → UNDOADMOB 09:42 → ERH 09:42 → 3RNO 11:28 → ERH 11:28 → 3RNO 11:28 → UNDODISOB 09-03 16:03
PROVIDERS: ADMIT Internal Medicine; ATTEND Internal Medicine
DX: A08.4 Viral intestinal infection, unspecified (principal); E11.9 Type 2 diabetes mellitus without complications; K21.9 Gastro-esophageal reflux disease without esophagitis; J44.9 Chronic obstructive pulmonary disease, unspecified; E78.5 Hyperlipidemia, unspecified; E87.2 Acidosis; I10 Essential (primary) hypertension; M54.9 Dorsalgia, unspecified; K29.70 Gastritis, unspecified, without bleeding; L71.9 Rosacea, unspecified; M19.90 Unspecified osteoarthritis, unspecified site; Z99.81 Dependence on supplemental oxygen; Z87.891 Personal history of nicotine dependence; Z90.710 Acquired absence of both cervix and uterus
CPT/HCPCS: 36415; 71010; 74176; 80053; 80061; 81001; 82550; 82803; 82948; 83615; 83690; 84484; 85025; 87040; 87045; 87324; 87338; 89055; 93005; 94640; 94760; 96361; 96365; 96375; 99285; C9113; G0328; G0378; J0696; J1200; J2270; J2405; J7040

== ENCOUNTER 2017-01-04 14:30 | Emergency (ER) | payer OTHER, MEDICARE ==
[2017-01-04 14:39] VITALS: BMI 35.8
[2017-01-04 14:45] VITALS: RESP 18; TEMP 98.2
[2017-01-04] MEDS ORDERED: Sodium Chloride 0.9% 1,000 ML IV SCH (15:15)
[2017-01-04 15:42] LABS: BASO # 0.04 K/mm3 (0.0-2.0); BASO % 0.6 % (0.0-3.0); EOS # 0.1 (0.0-0.7); EOS % 1.7 % (1.5-5.0); GRAN # 3.21 (1.4-6.5); GRAN % 48.8 % (50.0-68.0); HEMATOCRIT 41.1 % (36.0-48.0); LYMPH # 2.9 (1.2-3.4); LYMPH % 43.6 % (22.0-35.0); MEAN CELL VOLUME 90.7 fl (80.0-105.0); MEAN CORPUSCULAR HEMOGLOBIN 30.2 pg (25.0-35.0); MEAN CORPUSCULAR HGB CONC 33.3 g/dl (31.0-37.0); MONO # 0.4 (0.1-0.6); MONO % 5.3 % (1.0-6.0); RED CELL DISTRIBUTION WIDTH 13.1 % (11.5-14.5); WHITE BLOOD COUNT 6.6 10^3/ul (4.5-11.0)
[2017-01-04 15:43] LABS: URINE BILIRUBIN NEGATIVE (NEGATIVE); URINE BLOOD SMALL (NEGATIVE); URINE GLUCOSE (UA) NEGATIVE (NEGATIVE); URINE KETONE NEGATIVE (NEGATIVE); URINE LEUKOCYTE ESTERASE SMALL Leu/uL (NEGATIVE); URINE PROTEIN NEGATIVE mg/dL (<30 mg/dL); URINE UROBILINOGEN 0.2 E.U./dL (<1 E.U./dL)
[2017-01-04 15:47] LABS: URINE APPEARANCE CLEAR (CLEAR); URINE COLOR YELLOW (YELLOW)
[2017-01-04 15:57] LABS: ALB/GLOB RATIO 1.5 (1.1-1.8); ALKALINE PHOSPHATASE 53 U/L (38-126); ALT/SGPT 40 U/L (7-56); AST/SGOT 36 U/L (14-36); BILIRUBIN,TOTAL 0.7 mg/dL (0.2-1.3); BLOOD UREA NITROGEN 18 mg/dL (7-21); CALCIUM 9.8 mg/dL (8.4-10.5); CARBON DIOXIDE 32 mmol/L (21-33); CHLORIDE 101 mmol/L (98-107); GFR AFRICAN-AMERICAN > 60; GLUCOSE,RANDOM 118 mg/dL (70-110); LIPASE 235 U/L (23-300); POTASSIUM 4.6 mmol/L (3.6-5.0); SODIUM 140 mmol/L (132-148)
--- NOTE | 2017-01-04 15:59 | ED PDOC ---
Arrival/HPI - General Historian: Patient - History of Present Illness Time/Duration: > week Symptom Course: Unchanged Quality: Unable to Describe Severity Level: Moderate Activities at Onset: Rest <Glynn Blanchard - Last Filed: 01/04/17 17:54> <Jarret Jones - Last Filed: 01/04/17 18:02> - General Chief Complaint: GI Problem Time Seen by Provider: 01/04/17 14:50 - History of Present Illness Narrative History of Present Illness (Text): 01/04/17 15:56 This is a 71 yo female, with past medical hx of DM, GERD, HTN, asthma, HIRAM, originally from [facility], presenting with chief complaint of abdominal pain. Pain is epigastric in nature. It has been going on for 2 weeks now. It is staying the same, not getting any better or worse. It does not radiate. She also reports multiple episodes of non bloody vomiting today as well as multiple episodes of non bloody diarrhea. She says it has never happened before despite records of multiple ER visits for similar complaints. NO fevers/chills, chest pain, sob. PMH: DM, GERD, HTN, asthma, HIRAM PSH: C section x 5 Allergies: NKDA FH: denies Social hx: denies smoking, drinking, drug use. (Glynn Blanchard) Past Medical History - Provider Review Nursing Documentation Reviewed: Yes - Travel History Have you recently traveled outside [place] w/in the past 3 mons?: No - Past History Past History: No Previous - Infectious Disease Hx of Infectious Diseases: None - Tetanus Immunization Tetanus Immunization: Unknown - Reproductive Menopause: Yes - Cardiac Hx Hypertension: Yes Hx Pacemaker: No - Pulmonary Hx Asthma: Yes Hx Chronic Obstructive Pulmonary Disease (COPD): Yes (O2 AT HOME AND NEBULIZER [place].) Hx Pneumonia: Yes - Neurological Hx Neurological Disorder: No - HEENT Hx HEENT Disorder: Yes Hx Cataracts: Yes (RIGHT EYE) - Renal Hx Renal Disorder: Yes Hx Kidney Stones: Yes - Endocrine/Metabolic Hx Endocrine Disorders: Yes Hx Diabetes Mellitus Type 2: Yes - Hematological/Oncological Hx Blood Disorders: Yes Other/Comment: VITAMIN D DEFICIENCY - Integumentary Hx Dermatological Disorder: Yes Other/Comment: ROSACEA - Musculoskeletal/Rheumatological Hx Arthritis: Yes - Gastrointestinal Hx Crohn's Disease: No Hx Diverticulitis: No Hx Gall Bladder Disease: No Hx Gastritis: Yes - Genitourinary/Gynecological Hx Genitourinary Disorders: Yes (5 C SECTIONS, HYSTERECTOMY) Hx Urinary Tract Infection: Yes - Psychiatric Hx Depression: No Hx Substance Use: No - Surgical History Hx Hysterectomy: Yes - Anesthesia Hx Anesthesia: Yes Hx Anesthesia Reactions: No Hx Malignant Hyperthermia: No - Suicidal Assessment Feels Threatened In Home Enviroment: No <Glynn Blanchard - Last Filed: 01/04/17 17:54> Family/Social History - Physician Review Nursing Documentation Reviewed: Yes Family/Social History: No Known Family HX Smoking Status: Never Smoked Hx Alcohol Use: No Hx Substance Use: No Hx Substance Use Treatment: No <Glynn Blanchard - Last Filed: 01/04/17 17:54> Allergies/Home Meds <Glynn Blanchard - Last Filed: 01/04/17 17:54> <Jarret Jones - Last Filed: 01/04/17 18:02> Allergies/Adverse Reactions: Allergies No Known Allergies Allergy (Verified 12/10/16 19:26) Home Medications: Home Meds Medication Instructions Recorded Confirmed Mometasone/Formoterol [Dulera 200 2 puff INH BID 03/27/15 01/04/17 Mcg/5 Mcg Inhaler] Montelukast [Singulair] 10 mg PO DAILY 03/27/15 01/04/17 Naproxen 375 mg PO DAILY 03/27/15 01/04/17 Pantoprazole [Protonix EC Tab] 40 mg PO DAILY 03/27/15 01/04/17 Fenofibrate Nanocrystallized 145 mg PO DAILY 09/30/15 01/04/17 [Fenofibrate] Review of Systems - Review of Systems Constitutional: absent: Fatigue, Weight Change Eyes: absent: Vision Changes, Photophobia ENT: absent: Hearing Changes, Tinnitus Respiratory: absent: SOB, Cough Cardiovascular: absent: Chest Pain, Palpitations Gastrointestinal: Abdominal Pain, Stool Changes, Diarrhea, Nausea, Vomiting Genitourinary Female: absent: Dysuria, Frequency Musculoskeletal: absent: Arthralgias, Back Pain Skin: absent: Rash, Pruritis Neurological: absent: Headache, Dizziness Endocrine: absent: Diaphoresis, Polyuria Hemo/Lymphatic: absent: Adenopathy, Easy Bleeding <Glynn Blanchard - Last Filed: 01/04/17 17:54> Physical Exam Vital Signs Reviewed: Yes Mental Status: Positive for: Alert and Oriented X 3 - Systems Exam Head: Present: Atraumatic, Normocephalic Pupils: Present: PERRL Extroacular Muscles: Present: EOMI Mouth: Present: Moist Mucous Membranes Neck: Present: Normal Range of Motion Respiratory/Chest: Present: Clear to Auscultation Cardiovascular: Present: Normal S1, S2 Abdomen: Present: Tenderness, Normal Bowel Sounds. No: Distention, Peritoneal Signs, Rebound, Guarding Upper Extremity: Present: Normal Inspection. No: Cyanosis, Edema Lower Extremity: Present: Normal Inspection. No: Edema Neurological: Present: CN II-XII Intact, Speech Normal Skin: Present: Warm, Dry Psychiatric: Present: Alert, Oriented x 3, Normal Insight, Normal Concentration <Glynn Blanchard - Last Filed: 01/04/17 17:54> Temperature: Afebrile Blood Pressure: Hypertensive Pulse: Tachycardic Respiratory Rate: Normal <Jarret Jones - Last Filed: 01/04/17 18:02> Vital Signs Temp Pulse Resp BP Pulse Ox 01/04/17 16:31 86 18 148/79 98 01/04/17 14:44 98.2 F 94 H 18 155/86 H 97 Medical Decision Making <Glynn Blanchard - Last Filed: 01/04/17 17:54> - RAD Interpretation Placement Assistant: Radiologist <Jarret Jones - Last Filed: 01/04/17 18:02> ED Course and Treatment: 01/04/17 16:48 Seen and examined with the resident. Our history and physical exam reveals an elderly woman who presents to the emergency department accompanied by her daughter who translates. Epigastric abdominal pain along with nausea and vomiting for the last week. Some diarrhea. No back pain. She appears comfortable and in no distress. 01/04/17 17:06 EKG shows normal sinus rhythm rate approximately [address] or T-wave changes (Jarret Jones) - Lab Interpretations Lab Results: 01/04/17 15:20 01/04/17 15:20 Lab Results 01/04/17 15:25: Urine Color Yellow, Urine Appearance Clear, Urine pH 6.0, Ur Specific [place] 1.020, Urine Protein Negative, Urine Glucose (UA) Negative, Urine Ketones Negative, Urine Blood Small H, Urine Nitrate Negative, Urine Bilirubin Negative, Urine Urobilinogen 0.2, Ur Leukocyte Esterase Small H, Urine RBC 2 - 5, Urine WBC 5 - 10, Ur Epithelial Cells 4 - 5, Urine Bacteria Few , Hyaline Casts 0 - 2 01/04/17 15:20: Sodium 140, Potassium 4.6, Chloride 101, Carbon Dioxide 32, Anion Gap 13, BUN 18, Creatinine 0.7, Est GFR ( Amer) > 60, Est GFR (Non- Af Amer) > 60, Random Glucose 118 H, Calcium 9.8, Total Bilirubin 0.7, AST 36 D , ALT 40, Alkaline Phosphatase 53, Troponin I < 0.01, Total Protein 7.0, Albumin 4.2, Globulin 2.8, Albumin/Globulin Ratio 1.5, Lipase 235 01/04/17 15:20: WBC 6.6 D, RBC 4.53, Hgb 13.7, Hct 41.1, MCV 90.7, MCH 30.2, MCHC 33.3, RDW 13.1, Plt Count 241, MPV 11.0, Gran % 48.8 L, Lymph % (Auto) 43.6 H, [place] % (Auto) 5.3, Eos % (Auto) 1.7, Baso % (Auto) 0.6, Gran # 3.21, Lymph # 2.9, [place] # 0.4, Eos # 0.1, Baso # 0.04 - RAD Interpretation Radiology Orders: 01/04/17 15:11 ABDOMEN COMPLETE [US] Stat Ultrasound of the abdomen as read by the radiologist is positive for nephrolithiasis of 9 mm, but no ureterolithiasis or hydronephrosis. Otherwise no acute findings. (Tolerico,Jarret) - Medication Orders Current Medication Orders: Discontinued Medications Acetaminophen (Tylenol 325mg Tab) 650 mg PO STAT STA Stop: 01/04/17 16:41 Last Admin: 01/04/17 17:19 Dose: 650 mg MAR Pain/Vitals Document 01/04/17 17:19 EQ (Rec: 01/04/17 17:19 EQ [id number]) Pain Reassessment Is This A Pain ReAssessment? No Sleep Is patient sleeping during reassessment? No Presence of Pain Presence of Pain Yes Sodium Chloride (Sodium Chloride 0.9%) 1,000 mls @ 100 mls/hr IV .Q10H [id number] Last Admin: 01/04/17 15:33 Dose: 100 mls/hr eMAR Start Stop Document 01/04/17 15:33 EQ (Rec: 01/04/17 15:33 EQ [facility] [id number]) Intravenous Solution Start Date 01/04/17 Start Time 15:33 Ondansetron HCl (Zofran Inj) 4 mg IVP STAT STA Stop: 01/04/17 15:13 Last Admin: 01/04/17 15:33 Dose: 4 mg IVP Administration Document 01/04/17 15:33 EQ (Rec: 01/04/17 15:33 EQ [facility] [id number]) Charges for Administration # of IVP Administrations 1 Pantoprazole Sodium (Protonix Inj) 40 mg IVP STAT STA Stop: 01/04/17 15:13 Last Admin: 01/04/17 15:33 Dose: 40 mg IVP Administration Document 01/04/17 15:33 EQ (Rec: 01/04/17 15:33 EQ [facility] [id number]) Charges for Administration # of IVP Administrations 1 <Glynn Blanchard - Last Filed: 01/04/17 17:54> - Scribe Statement The provider has reviewed the documentation as recorded by the Scribe <Jarret Jones - Last Filed: 01/04/17 18:02> - Scribe Statement An Espinoza Provider Scribe Attestation: All medical record entries made by the Scribe were at my direction and personally dictated by me. I have reviewed the chart and agree that the record accurately reflects my personal performance of the history, physical exam, medical decision making, and the department course for this patient. I have also personally directed, reviewed, and agree with the discharge instructions and disposition. (Jarret Jones) Disposition/Present on Arrival - Present on Arrival Any Indicators Present on Arrival: No History of DVT/PE: No History of Uncontrolled Diabetes: No Urinary Catheter: No History of Decub. Ulcer: No History Surgical Site Infection Following: None - Disposition Have Diagnosis and Disposition been Completed?: Yes Disposition Time: 17:00 Patient Plan: Discharge <Glynn Blanchard - Last Filed: 01/04/17 17:54> <Jarret Jones - Last Filed: 01/04/17 18:02> - Disposition Diagnosis: Nephrolithiasis Disposition: HOME/ ROUTINE Condition: STABLE Discharge Instructions (ExitCare): Kidney Stones (ED) Prescriptions: Pantoprazole Sodium [Protonix] 40 mg PO DAILY #30 ect Ondansetron ODT [Zofran ODT] 4 mg PO Q6 PRN #28 odt PRN Reason: Nausea/Vomiting Referrals: [facility] Matilde Parisi, [Primary Care Provider] - Follow up with primary Forms: Carma (Bengali)
[2017-01-04 16:08] LABS: TROPONIN I < 0.01 ng/mL
[2017-01-04 16:20] LABS: URINE BACTERIA FEW (NEG)
--- NOTE | 2017-01-04 17:08 | US ---
HISTORY: Abdominal pain COMPARISON: CT abdomen and pelvis from 09/02/2016 TECHNIQUE: Grayscale imaging was performed. FINDINGS: LIVER: Measures 13.7 cm. There is diffuse increased echogenicity of the liver parenchyma. No mass. No intrahepatic bile duct dilatation. GALLBLADDER: There are no gallstones, wall thickening or pericholecystic fluid. The sonographic Spears's sign is negative. COMMON BILE DUCT: Measures 6.2 mm. No stones. No dilatation. PANCREAS: Unremarkable as visualized. No mass. No ductal dilatation. RIGHT KIDNEY: Measures 10.1cm. Normal echogenicity. No mass, or hydronephrosis. There is a 9 x 4 x 7 mm nonobstructing stone in the lower pole. LEFT KIDNEY: Measures 10.6cm. Normal echogenicity. No calculus, mass, or hydronephrosis. SPLEEN: Normal in size and contour. No mass. AORTA: No aneurysmal dilatation. IVC: Unremarkable. OTHER FINDINGS: None. IMPRESSION: 9 mm nonobstructing stone in the right lower pole. No hydronephrosis. Hepatic steatosis.
[2017-01-04 17:28] VITALS: BP 148/79; PULSE 86; O2SAT 98
--- NOTE | 2017-01-04 19:46 | CARD ---
APPROVED REPORT EKG Measurement Heart [id number] <Conclusion> Normal sinus rhythm Normal ECG
== END 2017-01-04 17:34 | disposition home or self-care (01) ==
LOC: ED 14:30
DX: N20.0 Calculus of kidney (principal); I10 Essential (primary) hypertension; E11.9 Type 2 diabetes mellitus without complications; G47.33 Obstructive sleep apnea (adult) (pediatric); J44.9 Chronic obstructive pulmonary disease, unspecified; Z99.81 Dependence on supplemental oxygen
CPT/HCPCS: 76700; 80053; 81001; 83690; 84484; 85025; 87086; 93005; 96374; 96375; 99284; C9113; J2405; J7040

== ENCOUNTER 2017-02-24 14:20 | Emergency (ER) | payer OTHER ==
[2017-02-24 14:21] VITALS: BMI 35.8
[2017-02-24 14:38] VITALS: RESP 18; TEMP 98.2
[2017-02-24] MEDS ORDERED: Albuterol-Ipratrop 3 mg / 0.5 (3 ml) UD IH STA (14:55)
--- NOTE | 2017-02-24 15:24 | ED PDOC ---
Arrival/HPI - General Chief Complaint: Flu-like Symptoms Time Seen by Provider: 02/24/17 14:38 Historian: Patient - History of Present Illness Narrative History of Present Illness (Text): 02/24/17 15:12 71yo female with PMHx of Asthma, hypertension, Diabetes present with one week history of yellow productive cough and fever. the daughter by the bedside states patient started having chest tightness, which is typical of her Asthma exacerbation today. States she used her neb inhaler at home with relieve. She denies chest pain, diaphoresis, nausea, vomiting, any other complaint. States the son - in-law was sick with cold symptoms. Past Medical History - Provider Review Nursing Documentation Reviewed: Yes - Past History Past History: No Previous - Infectious Disease Hx of Infectious Diseases: None - Tetanus Immunization Tetanus Immunization: Unknown - Cardiac Hx Hypertension: Yes Hx Pacemaker: No - Pulmonary Hx Asthma: Yes Hx Chronic Obstructive Pulmonary Disease (COPD): Yes (O2 AT HOME AND NEBULIZER [place].) Hx Pneumonia: Yes - Neurological Hx Neurological Disorder: No - HEENT Hx HEENT Disorder: Yes Hx Cataracts: Yes (RIGHT EYE) - Renal Hx Renal Disorder: Yes Hx Kidney Stones: Yes - Endocrine/Metabolic Hx Endocrine Disorders: Yes Hx Diabetes Mellitus Type 2: Yes - Hematological/Oncological Hx Blood Disorders: Yes Other/Comment: VITAMIN D DEFICIENCY - Integumentary Hx Dermatological Disorder: Yes Other/Comment: ROSACEA - Musculoskeletal/Rheumatological Hx Arthritis: Yes - Gastrointestinal Hx Crohn's Disease: No Hx Diverticulitis: No Hx Gall Bladder Disease: No Hx Gastritis: Yes - Genitourinary/Gynecological Hx Genitourinary Disorders: Yes (5 C SECTIONS, HYSTERECTOMY) Hx Urinary Tract Infection: Yes - Psychiatric Hx Depression: No Hx Substance Use: No - Surgical History Hx Hysterectomy: Yes - Anesthesia Hx Anesthesia: Yes Hx Anesthesia Reactions: No Hx Malignant Hyperthermia: No - Suicidal Assessment Feels Threatened In Home Enviroment: No Family/Social History - Physician Review Nursing Documentation Reviewed: Yes Family/Social History: Unknown Family HX Smoking Status: Never Smoked Hx Alcohol Use: No Hx Substance Use: No Hx Substance Use Treatment: No Allergies/Home Meds Allergies/Adverse Reactions: Allergies No Known Allergies Allergy (Verified 02/24/17 14:38) Home Medications: Home Meds Medication Instructions Recorded Confirmed Mometasone/Formoterol [Dulera 200 2 puff INH BID 03/27/15 02/24/17 Mcg/5 Mcg Inhaler] Montelukast [Singulair] 10 mg PO DAILY 03/27/15 02/24/17 Pantoprazole [Protonix EC Tab] 40 mg PO DAILY 03/27/15 02/24/17 Fenofibrate Nanocrystallized 145 mg PO DAILY 09/30/15 02/24/17 [Fenofibrate] Review of Systems - Physician Review All systems were reviewed & negative as marked: Yes - Review of Systems Constitutional: Fevers Eyes: Normal ENT: Normal Respiratory: Cough, Sputum. absent: SOB, Wheezing Cardiovascular: Normal Gastrointestinal: Normal Genitourinary Female: Normal Musculoskeletal: Normal Skin: Normal Neurological: Normal Endocrine: Normal Hemo/Lymphatic: Normal Psychiatric: Normal Physical Exam Vital Signs Reviewed: Yes Vital Signs Temp Pulse Resp BP Pulse Ox 02/24/17 14:34 98.2 F 90 18 160/94 H 96 Temperature: Afebrile Blood Pressure: Normal Pulse: Regular Respiratory Rate: Normal Appearance: Positive for: Well-Appearing, Non-Toxic, Comfortable Pain Distress: None Mental Status: Positive for: Alert and Oriented X 3 - Systems Exam Head: Present: Atraumatic, Normocephalic Pupils: Present: PERRL Extroacular Muscles: Present: EOMI Conjunctiva: Present: Normal Mouth: Present: Moist Mucous Membranes Neck: Present: Normal Range of Motion Respiratory/Chest: Present: Clear to Auscultation, Good Air Exchange. No: Respiratory Distress, Accessory Muscle Use, Wheezes, Decreased Breath Sounds, Rales, Retracting, Rhonchi, Tachypneic Cardiovascular: Present: Regular Rate and Rhythm, Normal S1, S2. No: Murmurs Abdomen: Present: Normal Bowel Sounds. No: Tenderness, Distention, Peritoneal Signs Back: Present: Normal Inspection Upper Extremity: Present: Normal Inspection. No: Cyanosis, Edema Lower Extremity: Present: Normal Inspection. No: Edema Neurological: Present: GCS=15, CN II-XII Intact, Speech Normal Skin: Present: Warm, Dry, Normal Color. No: Rashes Psychiatric: Present: Alert, Oriented x 3, Normal Insight, Normal Concentration Medical Decision Making ED Course and Treatment: 02/24/17 16:10 71yo female in ED with complaint of cough x one week She was afebrile. Hemodynamcailly stable. Lung was CTA b/l CXR NAD Rapid flu is negative Pt was treated with Duoneb, Zpack and antitussive. She ill be DC home with Zpack and antitussive. Advised to continue with her inhaler as needed. Referred to her PMD. - Lab Interpretations Lab Results: Lab Results 02/24/17 15:00: Influenza Typ A,B (EIA) Negative for flu a/b - RAD Interpretation Radiology Orders: 02/24/17 14:51 CHEST TWO VIEWS (PA/LAT) [RAD] Stat - Medication Orders Current Medication Orders: Discontinued Medications Albuterol/Ipratropium (Duoneb 3 Mg/0.5 Mg (3 Ml) Ud) 3 ml IH STAT STA Stop: 02/24/17 14:56 Last Admin: 02/24/17 15:10 Dose: 3 ml Disposition/Present on Arrival - Present on Arrival Any Indicators Present on Arrival: No History of DVT/PE: No History of Uncontrolled Diabetes: No Urinary Catheter: No History of Decub. Ulcer: No History Surgical Site Infection Following: None - Disposition Have Diagnosis and Disposition been Completed?: Yes Diagnosis: Cough Disposition: HOME/ ROUTINE Disposition Time: 16:15 Patient Plan: Discharge Condition: STABLE Discharge Instructions (ExitCare): Acute Cough (ED) Additional Instructions: Follow up with your doctor Return to ED for any new or worsening symptoms Prescriptions: Azithromycin [Zithromax] 250 mg PO DAILY #4 tab Promethazine [Phenergan Syrup] 6.25 mg PO Q6 #100 ml Referrals: Tiburcio Lacy MD [Family Provider] - Follow up with primary Forms: [employer] ([employer])
--- NOTE | 2017-02-24 16:00 | RAD ---
HISTORY: cough COMPARISON: 09/02/2016 TECHNIQUE: Chest PA and lateral FINDINGS: LUNGS: No active pulmonary disease. PLEURA: No significant pleural effusion identified. No pneumothorax apparent. CARDIOVASCULAR: Normal. OSSEOUS STRUCTURES: No significant abnormalities. VISUALIZED UPPER ABDOMEN: Normal. OTHER FINDINGS: None. IMPRESSION: No active disease.
[2017-02-24 16:48] VITALS: BP 138/84; PULSE 86; O2SAT 97
== END 2017-02-24 16:46 | disposition home or self-care (01) ==
LOC: ED 14:20
DX: R05 Cough (principal); E11.9 Type 2 diabetes mellitus without complications; I10 Essential (primary) hypertension; J44.9 Chronic obstructive pulmonary disease, unspecified; Z99.81 Dependence on supplemental oxygen

== ENCOUNTER 2018-01-26 13:42 | Emergency (ER) | payer MEDICAID, OTHER ==
[2018-01-26 13:51] VITALS: RESP 18; TEMP 98.2; BMI 28.3
[2018-01-26] MEDS: Albuterol-Ipratrop 3 mg / 0.5 (3 ml) UD IH SCH ×3 (14:16→14:34)
--- NOTE | 2018-01-26 14:19 | ED PDOC ---
Arrival/HPI - General Chief Complaint: Shortness Of Breath Time Seen by Provider: 01/26/18 13:47 Historian: Patient - History of Present Illness Narrative History of Present Illness (Text): 01/26/18 14:08 72 year old female, whose past medical history includes asthma, hypertension and diabetes, who presents to the Emergency department complaining of difficulty breathing for past 8 days. Patient notes subjective fever, chest pain, shortness of breath, chest tightness, and cough. Patient reports her pump usually helps her, but this time it did not help. Patient states she has had similar symptoms in the past. Patient denies any nausea, vomiting, diarrhea, constipation, abdominal pain, appetite changes, or any other complaints. Patient is a non-smoker. PMD: Tiburcio Ball Time/Duration: < week (Pt notes symptoms for past 8 days ) Symptom Onset: Sudden Symptom Course: Unchanged Activities at Onset: Light Past Medical History - Provider Review Nursing Documentation Reviewed: Yes - Past History Past History: No Previous - Infectious Disease Hx of Infectious Diseases: None - Tetanus Immunization Tetanus Immunization: Unknown - Cardiac Hx Hypertension: Yes Hx Pacemaker: No - Pulmonary Hx Asthma: Yes Hx Chronic Obstructive Pulmonary Disease (COPD): Yes (O2 AT HOME AND NEBULIZER [place].) Hx Pneumonia: Yes - Neurological Hx Neurological Disorder: No - HEENT Hx HEENT Disorder: Yes Hx Cataracts: Yes (RIGHT EYE) - Renal Hx Renal Disorder: Yes Hx Kidney Stones: Yes - Endocrine/Metabolic Hx Endocrine Disorders: Yes Hx Diabetes Mellitus Type 2: Yes - Hematological/Oncological Hx Blood Disorders: Yes Other/Comment: VITAMIN D DEFICIENCY - Integumentary Hx Dermatological Disorder: Yes Other/Comment: ROSACEA - Musculoskeletal/Rheumatological Hx Arthritis: Yes - Gastrointestinal Hx Crohn's Disease: No Hx Diverticulitis: No Hx Gall Bladder Disease: No Hx Gastritis: Yes - Genitourinary/Gynecological Hx Genitourinary Disorders: Yes (5 C SECTIONS, HYSTERECTOMY) Hx Urinary Tract Infection: Yes - Psychiatric Hx Depression: No Hx Substance Use: No - Surgical History Hx Hysterectomy: Yes - Anesthesia Hx Anesthesia: Yes Hx Anesthesia Reactions: No Hx Malignant Hyperthermia: No - Suicidal Assessment Feels Threatened In Home Enviroment: No Family/Social History - Physician Review Nursing Documentation Reviewed: Yes Family/Social History: Unknown Family HX Smoking Status: Never Smoked Hx Alcohol Use: No Hx Substance Use: No Hx Substance Use Treatment: No Allergies/Home Meds Allergies/Adverse Reactions: Allergies No Known Allergies Allergy (Verified 02/24/17 14:38) Home Medications: Home Meds Medication Instructions Recorded Confirmed Mometasone/Formoterol [Dulera 200 2 puff INH BID 03/27/15 02/24/17 Mcg/5 Mcg Inhaler] Montelukast [Singulair] 10 mg PO DAILY 03/27/15 02/24/17 Pantoprazole [Protonix EC Tab] 40 mg PO DAILY 03/27/15 02/24/17 Fenofibrate Nanocrystallized 145 mg PO DAILY 09/30/15 02/24/17 [Fenofibrate] Review of Systems - Physician Review All systems were reviewed & negative as marked: Yes - Review of Systems Constitutional: Fevers (Pt notes subjective fever). absent: Normal Eyes: Normal. absent: Vision Changes, Photophobia ENT: Normal. absent: Hearing Changes, Tinnitus Respiratory: SOB (Pt notes difficulty breathing for past 8 days), Cough (Pt notes cough ). absent: Normal Cardiovascular: Chest Pain (Pt notes chest pain ). absent: Normal Gastrointestinal: Normal. absent: Abdominal Pain, Diarrhea, Nausea, Vomiting, Appetite Changes Genitourinary Female: Normal. absent: Dysuria Endocrine: Normal. absent: Diaphoresis Psychiatric: Normal. absent: Anxiety, Depression Physical Exam Vital Signs Reviewed: Yes Vital Signs Temp Pulse Resp BP Pulse Ox 01/26/18 13:43 98.2 F 118 H 18 135/71 100 Temperature: Afebrile Blood Pressure: Normal Pulse: Tachycardic Respiratory Rate: Normal Appearance: Positive for: Well-Appearing, Non-Toxic Pain Distress: Mild Mental Status: Positive for: Alert and Oriented X 3 - Systems Exam Head: Present: Atraumatic, Normocephalic Pupils: Present: PERRL Extroacular Muscles: Present: EOMI Conjunctiva: Present: Normal Mouth: Present: Moist Mucous Membranes Neck: Present: Normal Range of Motion Respiratory/Chest: Present: Wheezes (mild wheezes at base bilaterally), Other (nonproductive cough) Cardiovascular: Present: Regular Rate and Rhythm, Normal S1, S2. No: Murmurs Abdomen: No: Tenderness, Distention, Peritoneal Signs Back: Present: Normal Inspection Upper Extremity: Present: Normal Inspection. No: Cyanosis, Edema Lower Extremity: Present: Normal Inspection. No: Edema Neurological: Present: GCS=15, CN II-XII Intact, Speech Normal Skin: Present: Warm, Dry, Normal Color. No: Rashes Psychiatric: Present: Alert, Oriented x 3, Normal Insight, Normal Concentration Medical Decision Making ED Course and Treatment: 01/26/18 14:08 Impression: 72 year old female who presents to the Emergency department complaining of difficulty breathing for past 8 days. mild wheezes on exam. Low pretest wells, will seek dimer. Likely mild COPD. Will seek troponin x1 given cough like nature of chest pain, as well as time course of chest pain. EKG unremarkable. Plan: -- EKG -- Labs -- X-Ray of chest, 2 views (PA/LAT) -- Duoneb -- SOLU-Medrol -- Reassess and disposition Prior Visits: Notes and results from previous visits were reviewed. Patient was last seen in the emergency department on 02/24/17 for one week history of yellow productive cough and fever. Pt was discharged home in stable condition, directed to follow up with PMD and prescribed Zithromax 250mg PO daily #4 tab and Phenergan Syrup 6.25mg PO Q6 #100 ml. Progress Notes: 01/26/18 15:30 labs unremarkable fluids ordered for tachy, will d/c if VS improves pt in NAD, speaking in sentances w/ out shortness of breath clear for d/c home pending vs. Endorsed to pt (with the addition of follow up and return indications) who is agreeable. - RAD Interpretation Narrative RAD Interpretations (Text): X-Ray of chest reviewed by radiologist, shows: Dictator : Vincent Rodriguez MD Report Date : 01/26/2018 15:10:57 IMPRESSION: No active disease. Radiology Orders: 01/26/18 14:10 CHEST TWO VIEWS (PA/LAT) [RAD] Stat Clinical Nursing Instructor: Radiologist - EKG Interpretation EKG Interpretation (Text): 01/26/18 EKG: Ordered, reviewed, and independently interpreted the EKG. Rate : 98 BPM Rhythm : NSR Interpretation : No STEMI Interpreted by ED Physician: Yes Type: 12 lead EKG - Medication Orders Current Medication Orders: Albuterol/Ipratropium (Duoneb 3 Mg/0.5 Mg (3 Ml) Ud) 3 ml IH Q15M [id number] Stop: 01/26/18 14:46 Last Admin: 01/26/18 14:16 Dose: 3 ml Discontinued Medications Methylprednisolone (Solu-Medrol) 125 mg IVP STAT STA Stop: 01/26/18 14:11 - Scribe Statement The provider has reviewed the documentation as recorded by the Scribe Airam White All medical record entries made by the Scribe were at my direction and personally dictated by me. I have reviewed the chart and agree that the record accurately reflects my personal performance of the history, physical exam, medical decision making, and the department course for this patient. I have also personally directed, reviewed, and agree with the discharge instructions and disposition. Disposition/Present on Arrival - Present on Arrival Any Indicators Present on Arrival: No History of DVT/PE: No History of Uncontrolled Diabetes: No Urinary Catheter: No History of Decub. Ulcer: No History Surgical Site Infection Following: None - Disposition Have Diagnosis and Disposition been Completed?: Yes Diagnosis: COPD (chronic obstructive pulmonary disease), Viral URI Disposition: HOME/ ROUTINE Disposition Time: 15:34 Patient Problems: Current Active Problems Problem Status Onset COPD (chronic obstructive pulmonary disease) Acute Viral URI Acute Condition: GOOD Discharge Instructions (ExitCare): Chronic Obstructive Pulmonary Disease (COPD), Including Emphysema Prescriptions: Albuterol HFA [Ventolin HFA 90 mcg/actuation (8 g)] 1 puff IH Q4H PRN 90 Days #1 inhaler PRN Reason: Shortness Of Breath predniSONE [Prednisone] 20 mg PO DAILY 5 Days #10 tab Referrals: Tiburcio Lacy MD [Primary Care Provider] - Follow up with primary Forms: [employer] ([employer])
[2018-01-26 14:53] LABS: BASO # 0.04 K/mm3 (0.0-2.0); BASO % 0.6 % (0.0-3.0); EOS # 0.1 (0.0-0.7); EOS % 1.9 % (1.5-5.0); GRAN # 3.85 (1.4-6.5); GRAN % 59.4 % (50.0-68.0); HEMOGLOBIN 12.7 g/dL (12.0-16.0); LYMPH % 31.2 % (22.0-35.0); MEAN CELL VOLUME 91.4 fl (80.0-105.0); MEAN CORPUSCULAR HEMOGLOBIN 30.2 pg (25.0-35.0); MEAN CORPUSCULAR HGB CONC 33.1 g/dl (31.0-37.0); MEAN PLATELET VOLUME 10.8 fl (7.0-11.0); MONO # 0.5 (0.1-0.6); MONO % 6.9 % (1.0-6.0); RBC 4.2 10^6/uL (3.5-6.1); WHITE BLOOD COUNT 6.5 10^3/uL (4.5-11.0)
[2018-01-26 15:06] LABS: ALB/GLOB RATIO 1.3 (1.1-1.8); ALT/SGPT 36 U/L (7-56); AST/SGOT 38 U/L (14-36); BLOOD UREA NITROGEN 10 mg/dL (7-21); GFR NON-AFRICAN AMERICAN > 60
--- NOTE | 2018-01-26 15:14 | RAD ---
Date of service: 01/26/2018 HISTORY: sob COMPARISON: No prior. TECHNIQUE: Chest PA and lateral FINDINGS: LUNGS: No active pulmonary disease. PLEURA: No significant pleural effusion identified. No pneumothorax apparent. CARDIOVASCULAR: No aortic atherosclerotic calcification present. Normal cardiac size. No pulmonary vascular congestion. OSSEOUS STRUCTURES: No significant abnormalities. VISUALIZED UPPER ABDOMEN: Normal. OTHER FINDINGS: None. IMPRESSION: No active disease.
[2018-01-26 15:15] LABS: TROPONIN I < 0.01 ng/mL
[2018-01-26] MEDS ORDERED: Sodium Chloride 0.9% 1,000 ML IV SCH (15:45)
[2018-01-26 17:29] VITALS: BP 132/78; PULSE 99; O2SAT 98
--- NOTE | 2018-01-27 09:09 | CARD ---
APPROVED REPORT Date of service: 01/26/2018 EKG Measurement Heart [id number] <Conclusion> Normal sinus rhythm Normal ECG No change
== END 2018-01-26 17:29 | disposition home or self-care (01) ==
LOC: ED 13:42
DX: J44.9 Chronic obstructive pulmonary disease, unspecified (principal); J06.9 Acute upper respiratory infection, unspecified; I10 Essential (primary) hypertension; E11.9 Type 2 diabetes mellitus without complications; Z99.81 Dependence on supplemental oxygen
CPT/HCPCS: 71046; 80053; 84484; 85025; 85378; 93005; 94640; 96374; 99284; J2930